=== PATIENT | female | born 1965 | race Two or more races ===

== ENCOUNTER 2019-05-23 16:41 | Inpatient (IN) | payer MEDICARE ==
[~2019-05-23] VITALS: Ht 152.4 cm; Wt 43.1 kg
[2019-05-23] MEDS ORDERED: GABA-534 PO (17:24)
[2019-05-23] MEDS ORDERED: DULO60CA64 PO (17:24)
[2019-05-23] MEDS ORDERED: MIRT15TA7 PO (17:24)
[2019-05-23] MEDS ORDERED: CALC-7 PO (17:24)
[2019-05-23] MEDS ORDERED: LISI10TA5 PO (17:24)
[2019-05-23] MEDS ORDERED: CABE0.5T2 PO (17:24)
[2019-05-23] MEDS ORDERED: ACETAMINOPHEN 325 MG TABLET PO PRN (18:00)
[2019-05-23] MEDS ORDERED: LORAZEPAM 0.5 MG TABLET PO PRN (18:00)
[2019-05-23] MEDS ORDERED: MAG HYDROX/AL HYDROX/SIMETH 30 ML UDC PO PRN (18:00)
[2019-05-23] MEDS ORDERED: BLOOD SUGAR DIAGNOSTIC 1 EACH STRIP IN ONE (18:00)
[2019-05-23] MEDS ORDERED: ZOLPIDEM TARTRATE 5 MG TABLET PO PRN (18:00)
--- NOTE | 2019-05-23 18:47 | NUR ---
PATIENT IS A 53 YEAR OLD FEMALE BROUGHT INTO THE HOSPITAL BY AMBULANCE FROM [facility]. PATIENT IS ADMITTED ON A 5150 HOLD FOR GRAVELY DISABLED. PATIENT FOR THE LAST 2-3 WEEKS HAS BEEN HAVING NEW ONSET AUDITORY HALLUCINATIONS OF MALE VOICE THREATENING HER THAT SHE WILL BE KILLED OR HURT IF SHE EATS OR DRINKS ANYTHING. PATIENT HAS BEEN EATING AND DRINKING VERY LITTLE FOR THE LAST FEW DAYS. UPON FACE TO FACE ASSESSMENT PATIENT IS PARANOID WITH DELAYED SPEECH. PATIENT SEEMS TO BE REACTING TO INTERNAL STIMULI. PATIENT DENIES SI/HI AND VISUAL HALLUCINATIONS. INFORMED DR CORMIER AND JONNY BECKER KNOT PICKER CLOTH OF ADMISSION. PATIENTS RIGHTS HANDBOOK GIVEN AND GUIDE TO PRESCRIPTIONS GIVEN. PATIENT SIGNED ADMISSION PAPERWORK. BROTHER HAS BEEN NOTIFIED OF ADMISSION. ENVIRONMENTAL CHECK COMPLETE. WILL CONTINUE TO MONITOR PT Q15 FOR MOOD, SAFETY AND BEHAVIOR
[2019-05-23 19:36] VITALS: BP 115/62
[2019-05-24 07:36] LABS: BILIRUBIN,TOTAL 0.4 mg/dL (0.2-1.0); CALCIUM, SERUM 8.5 mg/dL (8.5-10.1); CREATININE 0.7 mg/dL (0.6-1.3); POTASSIUM 3.5 mmol/L (3.5-5.1); TOTAL PROTEIN, SERUM 5.6 g/dL (6.4-8.2)
[2019-05-24 08:00] VITALS: BP 118/77
[2019-05-24] MEDS: CALCIUM CARB 250MG /VITAMIN D 1 UDTAB PO SCH ×2 (08:18→18:06)
[2019-05-24] MEDS: LORAZEPAM 0.5 MG TABLET PO PRN (08:19)
[2019-05-24] MEDS: GABAPENTIN 300 MG CAPSULE PO SCH ×3 (08:20→18:06)
[2019-05-24] MEDS: LISINOPRIL (10MG) 10 MG TABLET PO SCH (08:29)
--- NOTE | 2019-05-24 10:33 | NUR ---
Family Contact: SW called the pts brother, Ryan ([phone]), and discussed the pts treatment and discharge plan. Pts brother provided the SW with a complete history and then stated that he is not sure that home alone is a safe option for the pt. SW informed him of the medications that the pt is being started on and then stated that we will assess the pts discharge plan day by day.
--- NOTE | 2019-05-24 10:54 | NUR ---
Initial Discharge Plan: Pt currently resides at her apartment alone located at [address], [address] [address]; ([phone]). Per pt, she would like to return to his home. KENAN spoke to the pts brother, Ryan ([phone]), who stated that he is not sure if that is a safe option at this point. KENAN will work with the pt and the MD regarding appropriate discharge planning. KENAN will form a safe and proper discharge.
[2019-05-24] MEDS: DULOXETINE HCL 30 MG CAPSULE.DR PO SCH (11:23)
[2019-05-24] MEDS ORDERED: Cabergoline 0.5 MG PO SCH (13:00)
--- NOTE | 2019-05-24 15:20 | NUR ---
Group note: Pt attended a group session on 05/24/19 at 2PM discussing suicidal ideation and urges. S: I did not want to admit and get the help but my brother and my mother were very concerned and they just wanted me to be okay. I had made an attempt about 4 years ago but I am not sure if it counts because I jumped out of the way at the last second. I mean, if I really wanted to hurt myself, I would not have jumped out of the way. O: Pt was present during the group session and was cooperative. Pt appeared to be in a euthymic mood and presented with an anxious affect. Pt was attentive and provided feedback to all of the other patients who attended. Pt was able to appropriately maintain eye contact and tone of voice throughout the assessment. A: Pt expressed that she did not think that she actually wanted to end her life since she moved out of the way of a moving car at the last opportunity. Pt expressed thinking that there is something that is pushing her to keep living and even if she cannot identify it, she appreciates its existence. P: Pt will continue milieu treatment and medication stabilization.
[2019-05-24 16:00] VITALS: BP 119/78
--- NOTE | 2019-05-24 18:00 | NUR ---
med compliant,cooperative.
[2019-05-24 20:00] VITALS: BP 132/81
--- NOTE | 2019-05-24 20:00 | NUR ---
PATIENT RESTING IN BED COMFORTABLY, PT.IS COOPERATIVE, FEELING DEPRESSED, DENIES SI/HI/AVH AT THIS TIME. NO AGITATION NOTED.ENCOURAGED FOR VERBALIZATION OF FEELINGS. SAFETY PRECAUTIONS IMPLEMENTED. WILL CONTINUE TO MONITOR Q15MIN ROUNDS FOR SAFETY AND BEHAVIOR.
[2019-05-24] MEDS: QUETIAPINE FUMARATE 25 MG TABLET PO SCH (21:25)
--- NOTE | 2019-05-25 07:21 | NUR ---
RN NOTES : PT. RESETING IN HER BED, NO ACUTE DISTRESS NOTED , DENIED ANY DISCOMFORT AT THIS TIME , IN DURING SHIFT NO BEHAVIOR PROBLEMS NOTED , ENDORSE TO DAY NURSE FOR CONTINUIYT OF CARE.
[2019-05-25 08:00] VITALS: BP 123/80
[2019-05-25] MEDS: LISINOPRIL (10MG) 10 MG TABLET PO SCH (08:36)
[2019-05-25] MEDS: GABAPENTIN 300 MG CAPSULE PO SCH ×3 (08:36→16:36)
[2019-05-25] MEDS: DULOXETINE HCL 30 MG CAPSULE.DR PO SCH (08:36)
[2019-05-25] MEDS: CALCIUM CARB 250MG /VITAMIN D 1 UDTAB PO SCH ×2 (08:36→16:36)
--- NOTE | 2019-05-25 15:03 | NUR ---
GROUP NOTE: SW encouraged pt to attend group on this present day discussing "discharge planning." Pt refused to attend stating, "I'll think about going." SW attempted to provide intervention and discuss pts discharge plan and pt responded, "I already have that figured out no need to worry."
[2019-05-25 16:00] VITALS: BP 102/64
--- NOTE | 2019-05-25 20:00 | NUR ---
GPS/NURSING NOTES: PT. IN HER ROOM AWAKE. NO DISTRESS OR AGITATION NOTED. QUIET AND COOPERATIVE AT THIS TIME. CONFUSED AT TIMES. REALITY ORIENTATION DONE. NO C/O PAIN OR DISCOMFORT. SAFETY ENVIRONMENT OBSERVED AT ALL TIMES. WILL CONTINUE TO MONITOR Q 15 MIN FOR SAFETY AND BEHAVIOR.
[2019-05-25 20:21] VITALS: BP 108/56
[2019-05-25] MEDS: QUETIAPINE FUMARATE 25 MG TABLET PO SCH (21:12)
[2019-05-26 08:00] VITALS: BP 104/65
[2019-05-26] MEDS: CALCIUM CARB 250MG /VITAMIN D 1 UDTAB PO SCH ×2 (08:15→16:34)
[2019-05-26] MEDS: GABAPENTIN 300 MG CAPSULE PO SCH ×3 (08:15→16:34)
[2019-05-26] MEDS: DULOXETINE HCL 30 MG CAPSULE.DR PO SCH (08:15)
[2019-05-26] MEDS: LISINOPRIL (10MG) 10 MG TABLET PO SCH (08:16)
[2019-05-26] MEDS: LORAZEPAM 0.5 MG TABLET PO PRN (08:26)
--- NOTE | 2019-05-26 08:27 | NUR ---
GPS/RN AGITATION NOTED. PT C/O HEARING VOICES. MEDICATED WITH ATIVAN PO 0.5 ORDERED
--- NOTE | 2019-05-26 09:30 | NUR ---
GPS/RN DR CORMIER MADE AWARE OF PT CONDITION.
[2019-05-26] MEDS: QUETIAPINE FUMARATE 25 MG TABLET PO SCH ×3 (09:51→22:00)
[2019-05-26 16:00] VITALS: BP 104/65
--- NOTE | 2019-05-26 19:30 | NUR ---
GPS OPENING NOTE: PATIENT IN BED RESTING COMFORTABLY, IN NO APPARENT DISTRESS NOTED. ALERT AND ORIENTED X3, PATIENT IS CALM AND COOPERATIVE WITH CARE. SAFETY PRECAUTIONS IMPLEMENTED. BED ALARM ON AND IN LOCKED POSITION. WILL CONTINUE TO MONITOR FOR PATIENT'S SAFETY.
[2019-05-26 20:00] VITALS: BP 96/59
--- NOTE | 2019-05-26 22:49 | NUR ---
GPS NURSING NOTE: SCHEDULED SEROQUEL 50MG PO FOR TONIGHT WAS NOT GIVEN/ADMINISTER DUE TO BLOOD PRESSURE 96/59. WILL CONTINUE TO MONITOR.
--- NOTE | 2019-05-27 06:16 | NUR ---
GPS RN CLOSING NOTE: PATIENT IN BED ASLEEP, AROUSES EASILY. NO ACUTE DISTRESS NOTED. DENIES PAIN OR DISCOMFORT. NO AGITATION NOTED. SAFETY PRECAUTIONS IMPLEMENTED. BED ALARM ON AND IN LOCKED POSITION. WILL CONTINUE TO MONITOR FOR PT'S SAFETY.
[2019-05-27 08:00] VITALS: BP 124/74
[2019-05-27] MEDS: CALCIUM CARB 250MG /VITAMIN D 1 UDTAB PO SCH ×2 (08:19→17:17)
[2019-05-27] MEDS: GABAPENTIN 300 MG CAPSULE PO SCH ×3 (08:19→17:17)
[2019-05-27] MEDS: DULOXETINE HCL 30 MG CAPSULE.DR PO SCH (08:19)
[2019-05-27] MEDS: QUETIAPINE FUMARATE 25 MG TABLET PO SCH ×3 (08:19→21:07)
[2019-05-27] MEDS: LISINOPRIL (10MG) 10 MG TABLET PO SCH (08:20)
[2019-05-27 16:02] VITALS: BP 111/72
--- NOTE | 2019-05-27 19:30 | NUR ---
GPS OPENING NOTE: PATIENT IN BED RESTING COMFORTABLY, IN NO APPARENT DISTRESS NOTED. ALERT AND ORIENTED X3, PATIENT IS CALM, COOPERATIVE WITH CARE. FEELING DEPRESSED, ISOLATIVE. VERBALIZATION OF FEELINGS ENCOURAGED. SAFETY PRECAUTIONS IMPLEMENTED. BED ALARM ON AND IN LOCKED POSITION. WILL CONTINUE TO MONITOR FOR PATIENT'S SAFETY.
[2019-05-27 20:02] VITALS: BP 105/68
[2019-05-28 08:00] VITALS: BP 134/88
[2019-05-28] MEDS: GABAPENTIN 300 MG CAPSULE PO SCH ×3 (09:01→17:48)
[2019-05-28] MEDS: DULOXETINE HCL 30 MG CAPSULE.DR PO SCH (09:01)
[2019-05-28] MEDS: QUETIAPINE FUMARATE 25 MG TABLET PO SCH ×4 (09:02→21:18)
[2019-05-28] MEDS: LISINOPRIL (10MG) 10 MG TABLET PO SCH (09:03)
[2019-05-28] MEDS: CALCIUM CARB 250MG /VITAMIN D 1 UDTAB PO SCH ×2 (09:06→17:48)
[2019-05-28 15:29] LABS: BASOPHILS % (AUTO) 0.6 % (0.0-2.0); EOSINOPHILS % (AUTO) 1.5 % (0.0-6.0); HEMATOCRIT 44 % (33-45); HEMOGLOBIN 14.7 g/dL (11.5-14.8); LYMPHOCYTES # (AUTO) 0.9 /CMM (0.8-4.8); LYMPHOCYTES % (AUTO) 12.9 % (20.0-44.0); MEAN CORPUSCULAR HGB CONC 33 g/dl (31.0-36.0); MEAN CORPUSCULAR VOLUME 92 fL (82-100); MONOCYTES # (AUTO) 0.5 /CMM (0.1-1.30); MONOCYTES % (AUTO) 7.6 % (2.0-12.0); NEUTROPHILS # (AUTO) 5.3 /CMM (1.8-8.9); NEUTROPHILS % (AUTO) 77.4 % (43.0-81.0); PLATELET COUNT (AUTO) 244 /CMM (150-450); WHITE BLOOD COUNT (AUTO) 6.9 K/uL (4.3-11.0)
[2019-05-28 16:00] VITALS: BP 118/79
[2019-05-28 16:03] LABS: CREATININE 0.8 mg/dL (0.6-1.3); POTASSIUM 4.2 mmol/L (3.5-5.1)
[2019-05-28 20:09] VITALS: BP 153/83
[2019-05-29 08:00] VITALS: BP 137/77
[2019-05-29] MEDS: QUETIAPINE FUMARATE 25 MG TABLET PO SCH ×5 (08:10→21:21)
[2019-05-29] MEDS: CALCIUM CARB 250MG /VITAMIN D 1 UDTAB PO SCH ×2 (08:10→17:54)
[2019-05-29] MEDS: DULOXETINE HCL 30 MG CAPSULE.DR PO SCH (08:10)
[2019-05-29] MEDS: GABAPENTIN 300 MG CAPSULE PO SCH ×3 (08:10→17:00)
[2019-05-29] MEDS: LORAZEPAM 0.5 MG TABLET PO PRN (08:11)
[2019-05-29] MEDS: LISINOPRIL (10MG) 10 MG TABLET PO SCH (08:59)
--- NOTE | 2019-05-29 09:46 | NUR ---
GPS NURSING NOTE: RECEIVED PT IN BED RESTING. A/OX3, NO APPARENT DISTRESS NOTED. PT.IS COOPERATIVE WITH CARE AND COMPLIANT WITH DAILY MEDS, PATIENT REPORTS AUDITORY HALLUCINATIONS THAT ARE THREATENING. VOICE TELLING HER NOT TO EAT BUT SHE WAS ABLE TO EAT A FULL MEAL FOR BREAKFAST. PATIENT STATED FEELING SUICIDAL DUE TO AUDITORY HALLUCINATIONS BUT DENIES PLAN. VERBALIZATION OF FEELINGS ENCOURAGED. SAFETY PRECAUTIONS IMPLEMENTED. WILL CONTINUE TO MONITOR Q15MIN FOR SAFETY AND BEHAVIOR.
[2019-05-29 16:00] VITALS: BP 82/53
--- NOTE | 2019-05-29 17:54 | NUR ---
gps rn note; hold psych meds per Dr Morales until Dr Morales is able to see pt tomorrow bp currently 92/50
--- NOTE | 2019-05-29 18:29 | NUR ---
DR WILL AWARE OF BP DROPPED 77/50. ORDERED COFFEE. ADMINISTERED. PATIENT BP INCREASED TO 92/50. INCREASED PO INTAKE. AT 1830 BP DROPPED TO 74/56. DR. WILL PAGED AGAIN
[2019-05-29] MEDS ORDERED: IV NS 0.9% 1,000 ML BAG IV STA (18:38)
[2019-05-29] MEDS ORDERED: IV NS 0.9% 1,000 ML IV ONE (19:00)
--- NOTE | 2019-05-29 20:35 | NUR ---
GPS RN NOTE: OPENING NOTES RECEIVED PATIENT ASLEEP IN BED, ARAUSABLE TO VERBAL AND TACTILE STIMULI, ALERT AND ORIENTED X 2-3, CALM, DEPRESSED MOOD, HEARING VOICES AND STATED "THEY LET ME DO THINGS". REALITY ORIENTATION PROVIDED, REDIRECTED THE PATIENT, DENIES SI/HI, ON IV BOLUS D/T LOW BLOOD PRESSURE, IV SITE INTACT AND PATENT WITH NO S/S OF INFILTRATION NOTED. LATEST BP=79/53 P=70 R=20 P/L=O, NO SOB, NO ACUTE DISTRESS, BREATHING EVEN AND UNLABORED, NO S/S OF PAIN AND DISCOMFORT, WILL CONTINUE TO MONITOR Q15 MINS FOR SAFETY
[2019-05-29 20:54] VITALS: BP 74/48
[2019-05-29 21:23] VITALS: BP 86/54
[2019-05-29 23:33] VITALS: BP 90/58
--- NOTE | 2019-05-29 23:33 | NUR ---
GPS RN NOTE: BLOOD PRESSURE PATIENT AWAKE, ALERT AND ORIENTED X 3, CALM, COOPERATIVE, NO AGITATION NOTED, DENIES SI/HI, BP=90/57 P=87 R=20. NO SOB, NO ACUTE DISTRESS, BREATHING EVEN AND UNLABORED, NO S/S OF PAIN AND DISCOMFORT, WILL CONTINUE TO MONITOR Q15 MINS FOR SAFETY
[2019-05-30 08:00] VITALS: BP 126/84
[2019-05-30] MEDS: LISINOPRIL (10MG) 10 MG TABLET PO SCH (09:00)
[2019-05-30] MEDS: CALCIUM CARB 250MG /VITAMIN D 1 UDTAB PO SCH ×2 (09:00→17:46)
[2019-05-30] MEDS: GABAPENTIN 300 MG CAPSULE PO SCH ×3 (09:00→17:46)
[2019-05-30] MEDS: DULOXETINE HCL 30 MG CAPSULE.DR PO SCH (09:00)
[2019-05-30] MEDS: OLANZAPINE 2.5 MG TABLET PO SCH ×2 (10:00→17:46)
--- NOTE | 2019-05-30 15:58 | NUR ---
Group Note: SW encouraged pt to attend group therapy on 05/30/19 at 2pm discussing aggressive behaviors and triggers. Pt refused to attend group and stated that she did not feel connected to this topic. SW asked the pt to simply talk about her triggers and the pt stated that she is unaware of her triggers. She stated that when she talks about traumatic events in her life she will slam her hands down and clench them. She stated that she does not get aggressive with others.
[2019-05-30 16:00] VITALS: BP 120/73
--- NOTE | 2019-05-30 21:14 | NUR ---
GPS RN OPENING NOTE: RECEIVED PATIENT AWAKE, ALERT AND ORIENTED X 2-3 CALM, COOPERATIVE, PACING, DEPRESSED MOOD, DENIES SI/HI , HEARING VOICES OF PEOPLE THREATENING HER, TELLING HER TO HURT HERSELF, STAY IN BED AND RESTRICT HER ACTIVITES. PATIENT CONTRACTED FOR SAFETY. DENIES VH. NO SOB, NO ACUTE DISTRESS, BREATHING EVEN AND UNLABORED, NO S/S OF PAIN AND DISCOMFORT, ENCOURAGE THE PATIENT TO VERBALIZE HER FEELINGS, REDIRECTED THE PATIENT, WILL CONTINUE TO MONITOR Q15 MINS FOR SAFETY
[2019-05-30 23:22] VITALS: BP 113/72
[2019-05-31] MEDS: LORAZEPAM 0.5 MG TABLET PO PRN (01:48)
--- NOTE | 2019-05-31 02:20 | NUR ---
GPS RN NOTE: HEARING VOICES PATIENT NOTED FOR TALKING TO SELF, AGITATED AND BANGING THE SIDE RAILS. SPOKE TO THE PATIENT AND PATIENT STATED THAT SHE IS HEARING VOICES OF THREATENING HER. REDIRECT THE PATIENT, EXPLANATION AND REALITY ORIENTATION PROVIDED. ATIVAN 1MG PO GIVEN AND PATIENT CALM DOWN POST 30 MINS. WILL CONTINUE TO [id number] MINS FOR SAFETY
[2019-05-31 08:00] VITALS: BP 118/77
[2019-05-31] MEDS: GABAPENTIN 300 MG CAPSULE PO SCH ×3 (08:50→16:31)
[2019-05-31] MEDS: OLANZAPINE 2.5 MG TABLET PO SCH (08:50)
[2019-05-31] MEDS: DULOXETINE HCL 30 MG CAPSULE.DR PO SCH (08:51)
[2019-05-31] MEDS: LISINOPRIL (10MG) 10 MG TABLET PO SCH (08:51)
[2019-05-31] MEDS: CALCIUM CARB 250MG /VITAMIN D 1 UDTAB PO SCH ×2 (08:51→16:31)
--- NOTE | 2019-05-31 09:58 | NUR ---
Probable Cause Hearing Notification: SW called the pts brother, Ryan ([phone]), and informed him about the hearing and what it entails and the possible outcomes. He informed the SW about some comments that the pt had made to him two days ago. SW stated that she will call him back and give him the results of the hearing.
--- NOTE | 2019-05-31 13:29 | NUR ---
Group Note: SW invited the patient to attend group therapy on 05/31/2019 1pm to discuss what they would like to see change as a result of their stay in [facility]. The patient refused stating, " I don't want to go, I just want to rest". SW encouraged patient to attend and sit in if they do not feel comfortable speaking. Patient declined and stated "I will try to attend next time".
--- NOTE | 2019-05-31 15:49 | NUR ---
Family Contact: SW called the pts brother, Ryan ([phone]), and left a voicemail stating that the pts hold was upheld.
[2019-05-31 16:00] VITALS: BP 111/74
[2019-05-31] MEDS: ZIPRASIDONE 20 MG CAPSULE PO SCH (16:31)
[2019-05-31 20:27] VITALS: BP 104/65
[2019-06-01] MEDS: LORAZEPAM 0.5 MG TABLET PO PRN ×3 (06:52→21:21)
[2019-06-01 08:00] VITALS: BP 116/83
[2019-06-01] MEDS: GABAPENTIN 300 MG CAPSULE PO SCH ×3 (08:23→17:05)
[2019-06-01] MEDS: CALCIUM CARB 250MG /VITAMIN D 1 UDTAB PO SCH ×2 (08:23→17:05)
[2019-06-01] MEDS: ZIPRASIDONE 20 MG CAPSULE PO SCH ×2 (08:23→17:05)
[2019-06-01] MEDS: VENLAFAXINE XR 75 MG CAP.SR.24H PO SCH (08:23)
[2019-06-01] MEDS: LISINOPRIL (10MG) 10 MG TABLET PO SCH (08:24)
--- NOTE | 2019-06-01 09:20 | NUR ---
GPS RN NURSING NOTE: OPENING NOTE RECEIVED PT IN BED RESTING. A/OX3 PT IS C/O AUDITORY HALLUCINATIONS THAT SHE REPORTS ARE "THREATENING". PATIENT IS CLEARLY REACTING TO INTERNAL STIMULI AND IS SEEN TALKING ABOUT BANGING THE SIDE RAILS OF HER BED WELL TAPPING HER HAND AGAINST HER THIGH. PATIENT IS COOPERATIVE WITH CARE AND COMPLIANT WITH DAILY MEDS, VERBALIZATION OF FEELINGS ENCOURAGED. SAFETY PRECAUTIONS IMPLEMENTED. WILL CONTINUE TO MONITOR Q15MIN FOR SAFETY AND BEHAVIOR.
--- NOTE | 2019-06-01 15:06 | NUR ---
GPS NURSING NOTE: AUDITORY HALLUCINATIONS AND AGITATION PATIENT EXHIBITING AGITATION AND ANXIETY DUE TO AUDITORY HALLUCINATIONS. SHE IS BANGING HER HAND AGAINST THE BED. PATIENT IS EXPERIENCING COMMAND HALLUCINATIONS THAT SHE DESCRIBES "THREATENING". ATIVAN 1MG PO ADMINISTERED FOR SYMPTOMS. SHE STATED THE ATIVAN HELPED HER THIS MORNING WELL. WILL CONTINUE TO MONITOR Q15 FOR MOOD, SAFETY AND BEHAVIOR
[2019-06-01 16:00] VITALS: BP 103/59
[2019-06-01 20:00] VITALS: BP 120/72
[2019-06-02] MEDS: MAGNESIUM HYDROXIDE 30 ML UDC PO PRN (00:45)
[2019-06-02 08:00] VITALS: BP 113/72
[2019-06-02] MEDS: CALCIUM CARB 250MG /VITAMIN D 1 UDTAB PO SCH ×2 (08:17→16:25)
[2019-06-02] MEDS: ZIPRASIDONE 20 MG CAPSULE PO SCH ×2 (08:17→16:22)
[2019-06-02] MEDS: GABAPENTIN 300 MG CAPSULE PO SCH ×3 (08:17→16:25)
[2019-06-02] MEDS: VENLAFAXINE XR 75 MG CAP.SR.24H PO SCH (08:17)
[2019-06-02] MEDS: LISINOPRIL (10MG) 10 MG TABLET PO SCH (09:00)
--- NOTE | 2019-06-02 10:24 | NUR ---
GPS/RN-NOTES DR. CORMIER IN THE EUNIT WITH VERBAL ORDER TO CONTINUE PATIENT ON DOSTINEX 0.5MG P.O Q WEEK DUE TO PATIENT PROLACTIN LEVEL 0F 99.9. NOTED AND CARRIED OUT.WILL LET DENIS ZAMORANO REGARDING THE MEDICATION.
[2019-06-02] MEDS ORDERED: CABERGOLINE 0.5 MG PO SCH (10:30)
[2019-06-02] MEDS: POLYETHYLENE GLYCOL 3350 17 GM POWD.PACK PO SCH ×2 (10:30→21:01)
[2019-06-02] MEDS: BROMOCRIPTINE MESYLATE (2.5MG) 2.5 MG TABLET PO SCH (12:00)
--- NOTE | 2019-06-02 14:45 | NUR ---
RN NOTES PT REFUSING ADMINISTRATION OF NOON TIME PARLODEL. pT STATES THAT THE DRUG HAS BEEN DISCUSSED WITH THEIR ENDOCRINOLOGIEST AND IT WAS RECOMMENDED THAT SHE NOT TAKE THE PARLODEL WITH HER CURRENT TREATMENT. BENEFITS,/REWARDS/ RISKS AND SIDE EFFECTS APPLIED TO EXPLAINED TO PT. pT VERBALIZES UNDERSTANDING OF EDUCATION YET CONTINUES TO INSIST ON MEDICATION REFUSAL. WILL ILL CONTINUE TO MONITOR\.
--- NOTE | 2019-06-02 15:58 | NUR ---
GROUP NOTE: SW encouraged pt to attend group on this present day discussing "suicidal ideation." Pt refused stating she is unable to leave her room because she is in intermediate and prisoners can't leave. Pt is paranoid and appeared fearful. SW will continue to validate her feelings of distress in a nurturing manner once daily.
[2019-06-02 16:00] VITALS: BP 110/70
[2019-06-02 20:16] VITALS: BP 124/82
[2019-06-02] MEDS: LORAZEPAM 0.5 MG TABLET PO PRN (20:40)
--- NOTE | 2019-06-02 20:40 | NUR ---
GPS NURSING NOTE: AUDITORY HALLUCINATIONS AND AGITATION PATIENT HAS AN EPISODES OF ANXIETY AND AGITATION DUE TO AUDITORY HALLUCINATIONS. PATIENT STILL HEARING VOICES TELLING HER "THAT MAN IS GOING TO HURT, THREATENS AND CONTROL HER. PATIENT NOTED INSIDE THE BATHROOM SLAPPING HER THIGH. PATIENT REDIRECTED. ADMINISTERED ATIVAN 1MG PO ORDERED. WILL CONTINUE TO MONITOR Q15 FOR MOOD, SAFETY AND BEHAVIOR
[2019-06-03 08:00] VITALS: BP 119/72
[2019-06-03] MEDS: LISINOPRIL (10MG) 10 MG TABLET PO SCH (09:00)
[2019-06-03] MEDS: VENLAFAXINE XR 75 MG CAP.SR.24H PO SCH (09:05)
[2019-06-03] MEDS: GABAPENTIN 300 MG CAPSULE PO SCH ×3 (09:05→17:13)
[2019-06-03] MEDS: BROMOCRIPTINE MESYLATE (2.5MG) 2.5 MG TABLET PO SCH (09:05)
[2019-06-03] MEDS: ZIPRASIDONE 20 MG CAPSULE PO SCH ×2 (09:05→17:13)
[2019-06-03] MEDS: CALCIUM CARB 250MG /VITAMIN D 1 UDTAB PO SCH ×2 (09:05→17:13)
[2019-06-03] MEDS: MAGNESIUM HYDROXIDE 30 ML UDC PO PRN (11:27)
--- NOTE | 2019-06-03 11:28 | NUR ---
AGITATED.GIVEN ATIVAN 1 MG PO.ADDITIONALLY REQUESTS LAXATIVE.GIVEN MOM.
[2019-06-03] MEDS: LORAZEPAM 1 MG TABLET PO PRN (11:31)
--- NOTE | 2019-06-03 13:07 | NUR ---
DR. CORMIER HERE AND SPOKE TO PT. REGARDING LACK OF MED COMPLIANCE. REFUSED PARLODEL AND ONLY TOOK 40 MG OF GEODON.STATES SHE WILL TAKE PARLODEL NOW.
[2019-06-03 16:00] VITALS: BP 112/63
[2019-06-03 21:05] VITALS: BP 100/63
[2019-06-03] MEDS: POLYETHYLENE GLYCOL 3350 17 GM POWD.PACK PO SCH (22:23)
[2019-06-04 08:00] VITALS: BP 119/75
[2019-06-04] MEDS: LISINOPRIL (10MG) 10 MG TABLET PO SCH (08:24)
[2019-06-04] MEDS: ZIPRASIDONE 20 MG CAPSULE PO SCH (08:24)
[2019-06-04] MEDS: VENLAFAXINE XR 75 MG CAP.SR.24H PO SCH (08:24)
[2019-06-04] MEDS: GABAPENTIN 300 MG CAPSULE PO SCH ×3 (08:24→16:25)
[2019-06-04] MEDS: CALCIUM CARB 250MG /VITAMIN D 1 UDTAB PO SCH ×2 (08:24→16:25)
[2019-06-04] MEDS: BROMOCRIPTINE MESYLATE (2.5MG) 2.5 MG TABLET PO SCH (08:26)
--- NOTE | 2019-06-04 09:21 | NUR ---
PATIENT AWAKE, ALERT AND ORIENTED X 2-3 CALM, HEARING VOICES TELLING HER TO HURT HERSELF, DENIES SI/HI,ISOLATIVE DEPRESSED MOOD PATIENT CONTRACTED FOR SAFETY. DENIES PAIN.NO SOB, NO ACUTE DISTRESS,BREATHING EVEN AND UNLABORED, NO S/S OF PAIN AND DISCOMFORT,WILL CONTINUE TO MONITOR Q15 MINS FOR SAFETY
[2019-06-04] MEDS: LORAZEPAM 1 MG TABLET PO PRN (10:29)
--- NOTE | 2019-06-04 10:29 | NUR ---
GPS RN NOTE: PT HEARING VOICES HITTING ON THE BED, ATIVAN 1MG PO PRN GIVEN WILL CONTINUE MONITORING
[2019-06-04] MEDS: OLANZAPINE 5 MG TABLET PO SCH ×2 (13:00→21:42)
[2019-06-04] MEDS: MAGNESIUM HYDROXIDE 30 ML UDC PO PRN (15:27)
[2019-06-04 16:01] VITALS: BP 94/65
[2019-06-04 20:04] VITALS: BP 90/53
[2019-06-04 21:37] VITALS: BP 98/67
[2019-06-04] MEDS: POLYETHYLENE GLYCOL 3350 17 GM POWD.PACK PO SCH (21:41)
[2019-06-05] MEDS: LORAZEPAM 1 MG TABLET PO PRN ×2 (05:56→18:15)
--- NOTE | 2019-06-05 05:58 | NUR ---
rn gps notes patient noted hitting bed states she hears voices, appears anxious ativan prn offered patient agreed, prn ativan given as ordered, will continue to monitor for effectiveness.
[2019-06-05 08:00] VITALS: BP 107/92
[2019-06-05] MEDS: CALCIUM CARB 250MG /VITAMIN D 1 UDTAB PO SCH ×2 (08:33→17:18)
[2019-06-05] MEDS: VENLAFAXINE XR 75 MG CAP.SR.24H PO SCH (08:33)
[2019-06-05] MEDS: LISINOPRIL (10MG) 10 MG TABLET PO SCH (08:34)
[2019-06-05] MEDS: GABAPENTIN 300 MG CAPSULE PO SCH ×3 (08:34→17:18)
[2019-06-05] MEDS: BROMOCRIPTINE MESYLATE (2.5MG) 2.5 MG TABLET PO SCH (08:35)
[2019-06-05] MEDS: OLANZAPINE 5 MG TABLET PO SCH ×2 (08:37→21:36)
[2019-06-05] MEDS ORDERED: OLANZAPINE 10 MG VIAL IM STA (10:44)
--- NOTE | 2019-06-05 10:45 | NUR ---
RN NOTE:PATIENT TALKING TO HERSELF AND RESPONDING TO INTERNAL STIMULI HITTING HERSELF IN HER LEGS AND ARMS PATIENT STATED "SHE IS TRYING TO HURT ME ,VOICES TELLING ME BAD THINGS ". CALLED WITH NEW ORDER ZYPREXA 5MG IM PATIENT VOLUNTARILY ACCEPT ZYPREXA 5MG IM ,NO PHYSICAL HOLD WILL CONTINUE TO MONITOR FOR SAFTEY Q15 MINUTES .
[2019-06-05 16:00] VITALS: BP 102/67
[2019-06-05] MEDS: MAGNESIUM HYDROXIDE 30 ML UDC PO PRN (17:18)
--- NOTE | 2019-06-05 19:01 | NUR ---
RN NOTE: AT 1815 PATIENT AGITATED ,RESPONDING TO INTERNAL STIMULI ,HITTING HERSELF IN HER ARM AND LEGS MEDICATED WITH ATIVAN 1MG PO AT 1815 .AT 19:04 PATIENT CALM AND QUIET WILL CONTINUE TO MONITOR.
[2019-06-05 20:45] VITALS: BP 105/62
[2019-06-05] MEDS: POLYETHYLENE GLYCOL 3350 17 GM POWD.PACK PO SCH (21:36)
[2019-06-06] MEDS: LORAZEPAM 1 MG TABLET PO PRN ×3 (06:39→22:41)
--- NOTE | 2019-06-06 06:48 | NUR ---
GPS RN NOTE PT WOKE UP DISORGANIZED, ANXIOUS, BANGING ON THE SIDE OF HER BED. ATIVAN 1MG 1TAB GIVEN PO AT 0640. WILL CONTINUE TO MONITOR AND ENDORSE TO AM SHIFT.
[2019-06-06 08:00] VITALS: BP 101/69
[2019-06-06] MEDS: CALCIUM CARB 250MG /VITAMIN D 1 UDTAB PO SCH ×2 (08:11→16:50)
[2019-06-06] MEDS: VENLAFAXINE XR 75 MG CAP.SR.24H PO SCH (08:11)
[2019-06-06] MEDS: GABAPENTIN 300 MG CAPSULE PO SCH ×3 (08:11→16:50)
[2019-06-06] MEDS: OLANZAPINE 5 MG TABLET PO SCH ×3 (08:11→21:48)
[2019-06-06] MEDS: LISINOPRIL (10MG) 10 MG TABLET PO SCH (08:12)
[2019-06-06] MEDS: BROMOCRIPTINE MESYLATE (2.5MG) 2.5 MG TABLET PO SCH (08:14)
--- NOTE | 2019-06-06 09:36 | NUR ---
SNF Referral: SW faxed SNF referrals to the following facilities: [facility] with attn to [place] to the fax number: [phone] [facility] with attn to Malina to the fax number: [phone].
--- NOTE | 2019-06-06 10:25 | NUR ---
SNF Contact: Lynne ([phone]) from [facility] contacted the SW and stated that their facility is at capacity at the moment so there is no bed for the pt.
[2019-06-06] MEDS: MAGNESIUM HYDROXIDE 30 ML UDC PO PRN (10:27)
--- NOTE | 2019-06-06 10:29 | NUR ---
RN NOTE: PT C/O CONSTIPATION. MEDICATED WITH MOM PRN. PT STATES LAST BM 06.05.2019
--- NOTE | 2019-06-06 12:36 | NUR ---
RN NOTE/AGITATION: PT WITH INCREASED AGITATION. +CAH TO HURT SELF. PT HITTING THIGH WITH HAND. MEDICATED WITH ATIVAN 1MG PO PRN
--- NOTE | 2019-06-06 15:45 | NUR ---
Group Note: Pt attended group on 06/06/19 at 2pm discussing the topic of concerns around discharge plan. S: "I was told that I am going to be discharged to a nursing facility but I feel like I am too young for that and I do not know why this is the plan." "I know that my family is concerned for my safety and I am concerned about my health at this moment too but I just do not know where I can go. I want to go home but now my brother wants me to move to [place] to be around him." O: Pt is alert and oriented x4. Pt appeared to be in a depressed mood but presented with a calm affect. Pt was able to maintain appropriate eye contact and tone of voice. A: Pt appeared to be confused regarding her discharge plan due to her age and her lack of insight towards her needs. Pt came to the conclusion at the end of the group that the MD has appropriately conducted this plan of care for her. SW explained the benefits of a mcfp and the pt stated that she understands that she will continue to work on her stabilization. P: SW will continue to assess pts ability to participate in group milieu.
[2019-06-06 16:00] VITALS: BP 110/71
--- NOTE | 2019-06-06 16:25 | NUR ---
SNF Contact: Malina ([phone]) from [facility] contacted the SW and stated that they are requesting additional notes for the pt due to her suicidal ideation.
[2019-06-06 20:07] VITALS: BP 116/78
[2019-06-06] MEDS: POLYETHYLENE GLYCOL 3350 17 GM POWD.PACK PO SCH (21:52)
[2019-06-07] MEDS: LORAZEPAM 1 MG TABLET PO PRN (06:30)
[2019-06-07 08:00] VITALS: BP 125/60
[2019-06-07] MEDS: GABAPENTIN 300 MG CAPSULE PO SCH ×3 (08:21→16:16)
[2019-06-07] MEDS: OLANZAPINE 5 MG TABLET PO SCH ×3 (08:21→21:02)
[2019-06-07] MEDS: LISINOPRIL (10MG) 10 MG TABLET PO SCH (08:22)
[2019-06-07] MEDS: VENLAFAXINE XR 75 MG CAP.SR.24H PO SCH (08:22)
[2019-06-07] MEDS: BROMOCRIPTINE MESYLATE (2.5MG) 2.5 MG TABLET PO SCH (08:22)
[2019-06-07] MEDS: CALCIUM CARB 250MG /VITAMIN D 1 UDTAB PO SCH ×2 (08:22→16:17)
--- NOTE | 2019-06-07 08:53 | NUR ---
SNF Referral: KENAN faxed additional notes to [facility] with attn to Malina to the fax number: [phone].
[2019-06-07] MEDS: MAGNESIUM HYDROXIDE 30 ML UDC PO PRN (12:51)
--- NOTE | 2019-06-07 14:41 | NUR ---
GPS RN NOTE: PT. IN BED,TALKING TO SELF COMPLIANT WITH MEDICATIONS, NO ACUTE DISTRESS OR PAIN, ISOLATIVE AND WITHDRAWN. DENIES SI/HI NO C/O PAIN OR ANY DISCOMFORT PT WILL CONTINUE TO MONITOR FOR SAFETY AND BEHAVIOR.
--- NOTE | 2019-06-07 15:42 | NUR ---
GROUP NOTE: Pt was present in group on this day discussing "discharge plan." S: "I do not want to share with you why I am here and I don't know where I am going." O: Pt is guarded and paranoid with depressed mood and flat affect. A: Pt has not gained awareness during her hospitalization. P: SW will continue to encourage pt to attend group milieu.
[2019-06-07 16:00] VITALS: BP 110/68
[2019-06-07] MEDS: POLYETHYLENE GLYCOL 3350 17 GM POWD.PACK PO SCH (21:03)
[2019-06-08] MEDS: LORAZEPAM 1 MG TABLET PO PRN ×2 (03:51→10:20)
--- NOTE | 2019-06-08 03:53 | NUR ---
GPS RN NOTES: C/O OF FEELING ANXIOUS UPON DOING ROUNDS, PT IS CRYING AND YELLING IN HER ROOM. PT C/O OF FEELING ANXIOUS. OFFERED ATIVAN 1MG PO PRN ORDERED. PT AGREED AND TOLERATED MEDICATION WELL. CONTINUE TO MONITOR.
[2019-06-08 08:00] VITALS: BP 100/69
[2019-06-08] MEDS: VENLAFAXINE XR 75 MG CAP.SR.24H PO SCH (08:23)
[2019-06-08] MEDS: CALCIUM CARB 250MG /VITAMIN D 1 UDTAB PO SCH ×2 (08:23→16:16)
[2019-06-08] MEDS: LISINOPRIL (10MG) 10 MG TABLET PO SCH (08:24)
[2019-06-08] MEDS: GABAPENTIN 300 MG CAPSULE PO SCH ×3 (08:25→16:16)
[2019-06-08] MEDS: OLANZAPINE 5 MG TABLET PO SCH ×3 (08:25→21:01)
[2019-06-08] MEDS: BROMOCRIPTINE MESYLATE (2.5MG) 2.5 MG TABLET PO SCH (08:26)
[2019-06-08] MEDS: MAGNESIUM HYDROXIDE 30 ML UDC PO PRN (08:53)
--- NOTE | 2019-06-08 08:54 | NUR ---
RN NOTE: PT C/O CONSTIPATION. MEDICATED WITH MILK OF MAGNESIA PRN AND PRUNE JUICE GIVEN TO PT.
--- NOTE | 2019-06-08 09:10 | NUR ---
RN NOTE: RECEIVED PT LYING IN BED. NO ACUTE DISTRESS NOTED. VSS, AFEBRILE. PT A+OX3. ABLE TO MAKE NEEDS KNOWN. + COMMAND AUDITORY HALLUCINATIONS TO HURT SELF. PT DENIES SI/HI AT PRESENT TIME. PT C/O CONSTIPATION AND MEDICATED WITH MILK OF MAGNESIA AND GIVEN PRUNE JUICE. BP MEDICATGION HELD DUE TO DECREASED BLOOD PRESSURE. PT COMPLIANT WITH MEDICATION ADMISTRATION AND PLAN OF CARE. WILL CONT TO MONITOR PT PER [facility] PROTOCOL
--- NOTE | 2019-06-08 10:20 | NUR ---
RN NOTE: PT C/O INCREASED ANXIETY AND AUDITORY HALLUCINATIONS. PT MEDICATED WITH ATIVAN 1MG PO PRN.
--- NOTE | 2019-06-08 10:22 | NUR ---
SNF Contact: Malina ([phone]) from [facility] contacted the SW and stated that they will accept the pt. SW informed them that the pt is going to be discharged tomorrow.
--- NOTE | 2019-06-08 10:31 | NUR ---
Family Contact: KENAN called the pts brother, Ryan ([phone]), and left a voicemail stating that placement in a nursing facility was secured and that the pt will be discharged the following day. KENAN stated that she can provide more information with a phone call.
--- NOTE | 2019-06-08 10:40 | NUR ---
Family Contact: Pts brother, Ryan ([phone]), called the SW and stated that he accepts the placement and the SW provided him with the details of the facility.
--- NOTE | 2019-06-08 11:00 | NUR ---
RN NOTE: DR. CORMIER AT BEDSIDE. PLAN OF CARE DISCUSSED WITH PT. POSSIBLE DISCHARGE 06/09/2019 PENDING LAB RESULTS. PT'S LEGAL STATUS CHANGED TO VOLUNTARY. VOLUNTARY FORM SIGNED AND PT VERBALIZE UNDERSTANDING REGARDING PLAN OF CARE AND LEGAL STATUS.
--- NOTE | 2019-06-08 11:19 | NUR ---
RN NOTE: PT REPORTS IMPROVEMENT WITH ANXIETY AND AUDITORY HALLUCINATIONS AFTER ADMINISTRATION OF ATIVAN. WILL CONT TO MONITOR PT'S STATUS
--- NOTE | 2019-06-08 15:15 | NUR ---
Group Note: SW encouraged pt to attend group therapy on 06/08/19 at 2pm discussing social supports. Pt appeared to be asleep in her bed and stated that she did not want to participate in group and that she is being discharged the following morning. SW encouraged her to participate as it is still part of her treatment plan goals and informed her that she could talk about her brother but the pt refused.
[2019-06-08] MEDS ORDERED: POLYETHYLENE GLYCOL 3350 17 GM POWD.PACK PO PRN (16:30)
--- NOTE | 2019-06-08 16:35 | NUR ---
JAVI NOTE: ORDER FOR MIRALAX PRN ORDERED BY DEVAN AL
--- NOTE | 2019-06-08 16:56 | NUR ---
RN NOTE: PT REQUESTING PRN DOSE OF MIRALAX FOR CONSTIPATION. ADMINISTERED PRN DOSE PO
[2019-06-08 18:09] VITALS: BP 109/68
[2019-06-08 20:00] VITALS: BP 129/72
[2019-06-08] MEDS: POLYETHYLENE GLYCOL 3350 17 GM POWD.PACK PO SCH (21:37)
[2019-06-09] MEDS: LORAZEPAM 1 MG TABLET PO PRN (00:31)
--- NOTE | 2019-06-09 00:33 | NUR ---
GPS RN NOTES: C/O OF FEELING ANXIOUS UPON DOING ROUNDS, PT IS CRYING AND YELLING IN HER ROOM. PT TAPPING ON HER BED WITH HER HANDS. PT C/O OF FEELING ANXIOUS. OFFERED ATIVAN 1MG PO PRN ORDERED. PT AGREED AND TOLERATED MEDICATION WELL. CONTINUE TO MONITOR.
[2019-06-09 08:00] VITALS: BP 117/71
[2019-06-09] MEDS: CALCIUM CARB 250MG /VITAMIN D 1 UDTAB PO SCH (08:29)
[2019-06-09] MEDS: GABAPENTIN 300 MG CAPSULE PO SCH (08:29)
[2019-06-09] MEDS: BROMOCRIPTINE MESYLATE (2.5MG) 2.5 MG TABLET PO SCH (08:29)
[2019-06-09] MEDS: VENLAFAXINE XR 75 MG CAP.SR.24H PO SCH (08:29)
[2019-06-09] MEDS: OLANZAPINE 5 MG TABLET PO SCH (08:29)
[2019-06-09 08:30] VITALS: BP 117/71
[2019-06-09] MEDS: LISINOPRIL (10MG) 10 MG TABLET PO SCH (08:30)
--- NOTE | 2019-06-09 09:54 | NUR ---
GPS RN OPENING NOTE: RECEIVED PT LYING IN BED. NO ACUTE DISTRESS NOTED. VSS, PT AOX3. ABLE TO MAKE NEEDS KNOWN. + COMMAND AUDITORY HALLUCINATIONS. PT HITTING SIDE RAILS OF BED DUE TO AUDITORY HALLUCINATIONS. PATIENT FOUND CRYING IN BED THIS MORNING. PT DENIES SI/HI AT PRESENT TIME. BP MEDICATION HELD DUE TO DECREASED BLOOD PRESSURE. PT COMPLIANT WITH MEDICATION ADMINISTRATION AND PLAN OF CARE. DISCHARGE PLANNED FOR TODAY. WILL CONT TO MONITOR PT PER [facility] PROTOCOL
--- NOTE | 2019-06-09 11:44 | NUR ---
GPS BALANCE TRUING INSPECTOR NOTE: PATIENT IS A 53 YEAR OLD FEMALE DISCHARGED TO [facility] ([facility]). PATIENT IS IN STABLE CONDITION. VSS. NO ACUTE DISTRESS NOTED. NO COMPLAINTS. COMPLIANT WITH MEDICATION MANAGEMENT. COOPERATIVE WITH PLAN OF CARE. PSYCHIATRIC TREATMENT PLANS MET. MEDICAL TREATMENT PLANS DEFERRED FOR CONTINUAL MONITORING. DENIES SI/HI AT THE TIME OF DISCHARGE. PRESENT AUDITORY HALLUCINATIONS BUT DENIES VISUAL HALLUCINATIONS. SKIN CHECK DONE AND SKIN IS INTACT. EDUCATED PATIENT ABOUT AFTERCARE WITH COPY PROVIDED. RETURNED PERSONAL BELONGINGS TO PATIENT. MEDICATIONS RECONCILED WITH ALONG WITH PSYCHIATRIC DISCHARGE ORDERS WITH DR CORMIER. MEDICAL MEDICATIONS RECONCILED WITH RIP HARTMAN NP. DISCHARGE PAPERWORK SIGNED. FOR FOLLOW UP WITH PSYCHIATRIST AND FURNACE TENDER WITHIN 1 WEEK. PATIENT LEFT THE [facility] VIA AMBULANCE.
--- NOTE | 2019-06-09 13:44 | NUR ---
Discharge Note: Pt was discharged to [facility] SNF located at [address] [place] [address]; . Pt was transported via [facility] at 11AM. Pts brother, Ryan ([phone]), was made aware. Upon discharge, the pt appeared to be in a euthymic mood and presented with a distressed affect. Pt presented as alert and oriented x4 (time, place, self and situation). Pt denied both suicidal and homicidal ideation as well as auditory and visual hallucinations. Pt will continue to be under the care of psychiatrist, Dr. Morales, located at [address] [address] [facility] [address], [place] [address]; and tool machine set up operator, Dr. Wild, located at [address] [place] [address]; . Pts Choice of Vendor was signed.
== END 2019-06-09 11:40 | DRG 885 ==
LOC: GPS 17:06
PROVIDERS: ADMIT Psychiatry & Neurology Psychiatry; ATTEND Internal Medicine
DX: F33.3 Major depressive disorder, recurrent, severe with psychotic symptoms (principal); E44.0 Moderate protein-calorie malnutrition; R45.851 Suicidal ideations; Z68.1 Body mass index [BMI] 19.9 or less, adult; E22.1 Hyperprolactinemia; F41.9 Anxiety disorder, unspecified; I10 Essential (primary) hypertension; Z91.14 Patient's other noncompliance with medication regimen; Z73.6 Limitation of activities due to disability; R73.9 Hyperglycemia, unspecified; E88.09 Other disorders of plasma-protein metabolism, not elsewhere classified; F29 Unspecified psychosis not due to a substance or known physiological condition
CPT/HCPCS: 36415; 80048-TC; 80053-TC; 80061-TC; 82962-TC; 84146; 84443-TC; 85025-TC; 87081-TC; J3490; J7030

== ENCOUNTER 2019-10-21 14:25 | Inpatient (IN) | payer MEDICARE, OTHER ==
[~2019-10-21] VITALS: Ht 167.6 cm; Wt 57.2 kg
[~2019-10-21 14:25] MED LIST: CABE0.5T2 PO; CALC-7 PO; GABA-534 PO; LISI10TA5 PO
--- NOTE | 2019-10-21 14:25 | NUR ---
PT BIBPA FROM SNF C/O AGGRESSIVE BEHAVIOR TOWARDS STAFF. PT IS AAOX3, NOT IN RESPIRATORY DISTRESS, HOOKED TO INTERNATIONAL RELATIONS PROFESSOR, KEPT RESTED AND COMFORTABLE. WILL CONTINUE TO MONITOR.
--- NOTE | 2019-10-21 14:29 | NUR ---
SEEN AND EXAMINED BY .
--- NOTE | 2019-10-21 14:43 | NUR ---
[facility] CALLED,SPOKE WITH ART RN
--- NOTE | 2019-10-21 14:43 | NUR ---
Sean gill in [facility] - 10/21/[address] [facility] CALLED,SPOKE WITH ART RN
[2019-10-21 14:56] LABS: BASOPHILS % (AUTO) 0.5 % (0.0-2.0); EOSINOPHILS % (AUTO) 1.6 % (0.0-6.0); HEMATOCRIT 44 % (33-45); HEMOGLOBIN 14.8 g/dL (11.5-14.8); LYMPHOCYTES # (AUTO) 1.7 /CMM (0.8-4.8); MEAN CORPUSCULAR HGB CONC 34 g/dl (31.0-36.0); MEAN CORPUSCULAR VOLUME 92 fL (82-100); MONOCYTES # (AUTO) 0.8 /CMM (0.1-1.30); MONOCYTES % (AUTO) 9.7 % (2.0-12.0); NEUTROPHILS # (AUTO) 5.5 /CMM (1.8-8.9); NEUTROPHILS % (AUTO) 67.2 % (43.0-81.0); PLATELET COUNT (AUTO) 260 /CMM (150-450); RED BLOOD CELL COUNT(AUTO) 4.78 MIL/uL (4.0-5.2); WHITE BLOOD COUNT (AUTO) 8.3 K/uL (4.3-11.0)
[2019-10-21 15:03] LABS: CALCIUM, SERUM 8.7 mg/dL (8.5-10.1); CARBON DIOXIDE 27 mmol/L (21-32); CHLORIDE 103 mmol/L (98-107); CREATININE 1.1 mg/dL (0.6-1.3); GLUCOSE 120 mg/dL (74-106); POTASSIUM 3.9 mmol/L (3.5-5.1); SODIUM SERUM 139 mmol/L (136-145); UREA NITROGEN, BLOOD 15 mg/dL (7-18)
--- NOTE | 2019-10-21 15:08 | NUR ---
ER PHLEB AT BEDSIDE FOR BLOOD DRAW.
[2019-10-21 15:09] LABS: ALANINE AMINOTRANSFERASE 32 U/L (12-78); ALBUMIN 3.8 g/dL (3.4-5.0); ALCOHOL, BLOOD < 3 mg/dL (0-0); ALKALINE PHOSPHATASE 94 U/L (46-116); ASPARTATE AMINOTRANSFERASE 15 U/L (15-37); BILIRUBIN,DIRECT 0.1 mg/dL (0.0-0.2); BILIRUBIN,TOTAL 0.3 mg/dL (0.2-1.0); SALICYLATE < 2.8 mg/dL (2.8-20.0); TOTAL PROTEIN, SERUM 7.3 g/dL (6.4-8.2)
--- NOTE | 2019-10-21 15:27 | NUR ---
URINE SPECIMEN COLLECTED AND SEN TO LAB.
[2019-10-21 15:32] LABS: APPEARANCE,URINE Clear (CLEAR); BILIRUBIN,URINE Negative (NEGATIVE); BLOOD, URINE Negative Ery/uL (NEGATIVE); COLOR,URINE Yellow (YELLOW); KETONES,URINE Trace (NEGATIVE); LEUKOCYTE ESTERASE ,URINE Negative (NEGATIVE); NITRITE, URINE Negative (NEGATIVE); PROTEIN,URINE Negative (NEGATIVE); UGLUCOSE Negative (NEGATIVE); UROBILINOGEN,URINE 0.2 EU/dL (0.2)
[2019-10-21 15:35] LABS: BACTERIA,URINE None seen /HPF (None Seen); RBC,URINE 0-2 /HPF (0-2); SQUAMOUS EPITHELIAL CELL,UR Rare /HPF (None Seen)
--- NOTE | 2019-10-21 15:55 | NUR ---
CALLED [facility] FOR CRISIS EVAL. ETA 1 HOUR.
--- NOTE | 2019-10-21 16:35 | NUR ---
DINAH CALDWELL CRISIS RIFLE CASE REPAIRER AT BEDSIDE.
--- NOTE | 2019-10-21 18:15 | NUR ---
COVID SWAB OBTAINED AND SENT TO LAB.
--- NOTE | 2019-10-21 18:18 | NUR ---
REPORT GIVEN TO JAVI DONG FOR RANJEET.
--- NOTE | 2019-10-21 18:34 | NUR ---
RECEIVED PATIENT FROM ER PER JENNIFER ZAMORANO PATIENT WILL BE MEDSURG ONLY AND HE WILL PLACE ADMITTING ORDERS,WILL CONTINUE TO FF.
--- NOTE | 2019-10-21 18:51 | NUR ---
RN NOTE RECEIVED PATIENT FROM ER. PATIENT ADMITTED MS STATUS. IN STABLE CONDITION, ADMITTED DUE TO PENDING COVID SWAB. ON 5150 HOLD. SITTER OBSERVED AT BEDSIDE. PATIENT IS COOPERATIVE. VITAL SIGNS ARE STABLE FOLLOW: BP: 126/78, P: 88, R: 16, O2: 96%, T: 97.6. PATIENT SATURATING WELL ON ROOM AIR, NO SIGNS OF RESPIRATORY DISTRESS NOTED. AMBULATORY, ABLE TO MAKE NEEDS KNOWN. LABS ARE NORMAL. PATIENT HAS NO COMPLAINS AT THE MOMENT. SAFETY MAINTAINED, CALL LIGHT WITHIN REACH, WILL ENDORSED TO PM NURSE FOR ADMISSION.
[2019-10-21] MEDS ORDERED: CABERGOLINE 0.5 MG PO SCH (19:00)
--- NOTE | 2019-10-21 19:30 | NUR ---
RN OPENING NOTES: Received pt in bed, awake A&Ox4. On RA, tolerating well. No SOB or respiratory distress noted. On isolation precautions for R/O Covid. Pt currently on 5150 hold. Pt ambulatory with steady gait. No IV access. Pt cleaned, skin check done, head to toe assessment done. Saad Rodriguez DNP aware of pt's arrival in unit. Will put orders in. Safety measures in place. Will continue to monitor.
[2019-10-21 20:00] VITALS: BP 126/76
[2019-10-21] MEDS ORDERED: MAG HYDROX/AL HYDROX/SIMETH 30 ML UDC PO PRN (20:30)
[2019-10-21] MEDS ORDERED: HYDROCODONE/APAP 5/325MG TABLET PO PRN (20:30)
[2019-10-21] MEDS ORDERED: MAGNESIUM HYDROXIDE 30 ML UDC PO PRN (20:30)
[2019-10-21] MEDS ORDERED: ZOLPIDEM TARTRATE 5 MG TABLET PO PRN (20:30)
[2019-10-21] MEDS ORDERED: ONDANSETRON HCL/PF 4 MG/2 ML VIAL IVP PRN (20:30)
[2019-10-21] MEDS ORDERED: ACETAMINOPHEN 325 MG TABLET PO PRN (20:30)
[2019-10-21] MEDS ORDERED: Z GUARD REMEDY 2 OZ OINT TP PRN (20:30)
--- NOTE | 2019-10-21 21:30 | NUR ---
RN NOTE: Called and left VM for Dr. Morales, per H&P notes.
[2019-10-22 04:00] VITALS: BP 112/69
[2019-10-22 06:26] LABS: BASOPHILS % (AUTO) 0.5 % (0.0-2.0); EOSINOPHILS % (AUTO) 2.3 % (0.0-6.0); HEMATOCRIT 44 % (33-45); HEMOGLOBIN 14.6 g/dL (11.5-14.8); LYMPHOCYTES # (AUTO) 1.4 /CMM (0.8-4.8); LYMPHOCYTES % (AUTO) 19.1 % (20.0-44.0); MEAN CORPUSCULAR HGB CONC 33 g/dl (31.0-36.0); MEAN CORPUSCULAR VOLUME 92 fL (82-100); MONOCYTES # (AUTO) 0.8 /CMM (0.1-1.30); MONOCYTES % (AUTO) 10.9 % (2.0-12.0); NEUTROPHILS % (AUTO) 67.2 % (43.0-81.0); PLATELET COUNT (AUTO) 245 /CMM (150-450); RED BLOOD CELL COUNT(AUTO) 4.79 MIL/uL (4.0-5.2); WHITE BLOOD COUNT (AUTO) 7.4 K/uL (4.3-11.0)
--- NOTE | 2019-10-22 06:44 | NUR ---
RN CLOSING NOTES: Pt remains on isolation precautions for Covid. Remains on RA. No SOB or respiratory distress noted. No acute changes noted during shift. Safety measures in place. Will endorse to AM nurse for RANJEET.
[2019-10-22 06:45] LABS: CALCIUM, SERUM 8.8 mg/dL (8.5-10.1); CREATININE 0.8 mg/dL (0.6-1.3); PHOSPHORUS 4.3 mg/dL (2.5-4.9); POTASSIUM 3.7 mmol/L (3.5-5.1)
[2019-10-22 08:00] VITALS: BP 120/65
--- NOTE | 2019-10-22 08:00 | NUR ---
MS RN NOTE PATIENT IN BED, ALL NEEDS ATTENDED, ON RA ,NO SOB NOTED ,SAT 97%, HAVING BREAKFAST , ABLE TO EAT SELF, BED IN LOWEST AND LOCKED POSITION , OH HOLD FOR 72 HOUR ORDERED, SITTER AT BEDSIDE,RESTING COMFORTABLY AT THIS TIME ,NO AGITATION NOTED
[2019-10-22] MEDS: CALCIUM CARB 250MG /VITAMIN D 1 UDTAB PO SCH ×2 (08:16→16:55)
[2019-10-22] MEDS: GABAPENTIN 300 MG CAPSULE PO SCH ×3 (08:17→16:55)
[2019-10-22] MEDS: LISINOPRIL (10MG) 10 MG TABLET PO SCH (08:17)
--- NOTE | 2019-10-22 11:00 | NUR ---
ms rn note restring comfortably, all needs attended,no sob noted not in distress, still on hold 72 hour per hospital protocol ,with sitter at bedside
[2019-10-22] MEDS: VENLAFAXINE XR 150 MG CAP.SR.24H PO SCH (14:37)
--- NOTE | 2019-10-22 15:57 | NUR ---
telecommunications field engineer note called to dr alamo notified that patient become very agitated and yelling out and become abusive self as clapping her body with new order Zyprexa and Ativan given, will f\u
[2019-10-22 16:00] VITALS: BP 119/67
[2019-10-22] MEDS ORDERED: LORAZEPAM INJ 2 MG/ML VIAL IV ONE (16:00)
[2019-10-22] MEDS ORDERED: OLANZAPINE 10 MG VIAL IM ONE (16:15)
[2019-10-22] MEDS ORDERED: LORAZEPAM INJ 2 MG/ML VIAL IM ONE ×2 (16:30)
--- NOTE | 2019-10-22 17:02 | NUR ---
ms rn note Zyprexa and Ativan given as ordered now resting comfortably, all needs attended
--- NOTE | 2019-10-22 19:54 | NUR ---
RN OPENING PT RECEIVED IN BED. PT IS A/A/O X3, NO DISTRESS NOTED, PT IS ON RA NO SOB NOTED, PT IS ON 5150 HOLD, PT HAS SITTER , PT IS CALM AND COOPERATIVE. NO IV ACCESS. SAFETY MEASURES IN PLACE BED AT LOWEST POSITIO AND LOCKED, SIDE RAILS UP X2. WILL CONTINUE TO MONITOR.
--- NOTE | 2019-10-22 19:55 | NUR ---
RN OPENING NOTE CONTINUE PT DENIES SI AT THIS MOMENT
[2019-10-22 20:00] VITALS: BP 96/56
[2019-10-22] MEDS: OLANZAPINE 10 MG TABLET PO SCH (21:00)
--- NOTE | 2019-10-22 22:13 | NUR ---
RN NOTE ZYPREXA NON ADMIN DUE TO LOW BP 96/56, AND PT IS SLEEPING.
[2019-10-23 04:00] VITALS: BP 102/59
--- NOTE | 2019-10-23 07:02 | NUR ---
RN CLOSING NOTE PT REMAINED CALM AND COOPERATIVE DURING MY SHIFT. VSS, NO SOB NOTED. WILL ENDORSE TO INCOMING SHIFT FOR RANJEET. SDFETY MEASURES IN PLACE.
--- NOTE | 2019-10-23 08:00 | NUR ---
RN opening note Received patient in bed AO x 2-3, able to responds all stimuli. Does no appears pain or any discomfort. Skin is warm to touch, kept clean/dry. Respiratory even and unlabored in room air, no distress observed. Keep bed in locked with low elevated HOB and low position of the bed. Call light within reach, will continue to monitor.
[2019-10-23] MEDS: VENLAFAXINE XR 150 MG CAP.SR.24H PO SCH (08:46)
[2019-10-23] MEDS: CALCIUM CARB 250MG /VITAMIN D 1 UDTAB PO SCH ×2 (08:46→16:04)
[2019-10-23] MEDS: GABAPENTIN 300 MG CAPSULE PO SCH ×3 (08:46→16:04)
[2019-10-23] MEDS: OLANZAPINE 10 MG TABLET PO SCH ×2 (08:46→20:38)
[2019-10-23] MEDS: LISINOPRIL (10MG) 10 MG TABLET PO SCH (08:47)
[2019-10-23 10:00] VITALS: BP 110/58
[2019-10-23] MEDS: BROMOCRIPTINE MESYLATE (2.5MG) 2.5 MG TABLET PO SCH (13:48)
--- NOTE | 2019-10-23 13:49 | NUR ---
Given report Niya/JAVI.
--- NOTE | 2019-10-23 13:50 | NUR ---
received report from Linnea CALDWELL. patient in bed AO x 2-3, able to responds all stimuli. no s/s of distress. Skin is warm to touch, kept clean/dry. Respiratory even and unlabored in room air. Bed in locked with low elevated HOB and low position of the bed. Call light within reach. will continue to monitor
--- NOTE | 2019-10-23 14:30 | NUR ---
BIOCRIPTINE MESYLATE(2.5MG) MISSED DOSE, MED IN NOT IN OMNICELLS OR CASSETTE. INFORMED PHARMACY.
--- NOTE | 2019-10-23 19:00 | NUR ---
RN CLOSING NOTES: Pt remains on isolation precautions for Covid. Remains on RA. No SOB or respiratory distress noted. No acute changes noted during shift. Safety measures in place. Will endorse to pm nurse for RANJEET.
--- NOTE | 2019-10-23 19:10 | NUR ---
RN OPENING NOTES RECEIVED PT LYING ON BED AWAKE NO SIGN AND SYMPTOMS OF RESPIRATORY DISTRESS ON RA SPO2 95 % NO COMPLAINTS OF PAIN AT THIS TIME, PATIENT IS COMPLAINT WITH MEDICATION AND TREATMENT, ALERT AND VERY COOPERATIVE, PATIENT DENIES ANY SUICIDE IDEATION AND HOMICIDAL IDEATION AT THIS TIME, SAFETY MEASURE MAINTAINED CALL LIGHT WITHIN REACH SIDE RFAILS UP X2 PT IS VISIBLE TO SITTER, ON DROPLET ISOLATION FOR R/O COVID WILL CONT TO MONITOR
[2019-10-23 21:00] VITALS: BP 102/61
--- NOTE | 2019-10-24 00:20 | NUR ---
RN NOTE RECEIVED PATIENT AROUND THIS TIME IN BED, SLEEPING COMFORTABLY. ON ISOLATION FOR R/O COVID. SITTER NEXT TO PATIENT'S ROOM. WILL CONTINUE TO MONITOR.
[2019-10-24 05:00] VITALS: BP 125/74
--- NOTE | 2019-10-24 06:48 | NUR ---
RN NOTE PATIENT REMAINED STABLE THROUGHOUT THE NIGHT. NO SIGNIFICANT CHANGES NOTED. ALL NEEDS ATTENDED AND MET. WILL ENDORSE TO AM SHIFT RN FOR CONTINUATION OF CARE.
--- NOTE | 2019-10-24 07:29 | NUR ---
RN OPENING NOTES RECEIVED PT IN BED AWAKE NO SIGN AND SYMPTOMS OF RESPIRATORY DISTRESS ON RA NO SOB NO COOPERATIVE, SAFETY MEASURE MAINTAINED, CALL LIGHT WITHIN REACH SIDE RAILS UP X2 PT IS VISIBLE TO SITTER, ON DROPLET ISOLATION FOR R/O COVID ,WILL CONT TO MONITOR, HAVING BREAKFAST SELF
[2019-10-24 08:00] VITALS: BP 120/75
[2019-10-24] MEDS: OLANZAPINE 10 MG TABLET PO SCH ×2 (08:14→20:54)
[2019-10-24] MEDS: VENLAFAXINE XR 150 MG CAP.SR.24H PO SCH (08:14)
[2019-10-24] MEDS: CALCIUM CARB 250MG /VITAMIN D 1 UDTAB PO SCH ×2 (08:14→16:28)
[2019-10-24] MEDS: GABAPENTIN 300 MG CAPSULE PO SCH ×3 (08:14→16:28)
[2019-10-24] MEDS: LISINOPRIL (10MG) 10 MG TABLET PO SCH (08:15)
--- NOTE | 2019-10-24 09:15 | NUR ---
MS RN NOTE DR HILLIARD PSYCHIATRIST NOTIFIED THAT HOLD ORDER WILL TODAY AT 1730 ,STATED THAT WILL CONT HOLD ORDER FOR 14 DAYS, WILL F\U [facility] NOTIFIED
--- NOTE | 2019-10-24 12:46 | NUR ---
patient covid negative on hold nursig sup notified.awaits bed to clean unit.
--- NOTE | 2019-10-24 13:04 | NUR ---
MS RN NOTE SPOKE WITH DR GOLDSMITH NOTIFIED THAT PATIENT IS NEGATIVE FOR COVID -19 ,OK TO TRANSFER TO [facility] SO
--- NOTE | 2019-10-24 13:17 | NUR ---
MS RN NOTE CALLED TO [facility] UNIT SPIKE WITH CHARGE NURSE, REPORT GIVEN
--- NOTE | 2019-10-24 13:25 | NUR ---
spoke with dr. frannie sanders per patient not clear yet today for discharge to [facility].NURSING SUP MADE AWARE.
[2019-10-24 16:00] VITALS: BP 127/76
--- NOTE | 2019-10-24 17:30 | NUR ---
ms rn note report given to august rn ,patient will be transfer to room 206
[2019-10-24 18:00] VITALS: BP 113/67
--- NOTE | 2019-10-24 18:00 | NUR ---
ms rn note transferred to med surge unit with stable condition by bed
--- NOTE | 2019-10-24 18:15 | NUR ---
RN NOTES RECEIVED PT FROM [facility] WITH A [facility] STATUS VIA WHEELCHAIR WITH A SITTER. PT AWAKE, A/O X3. PT TOLERATING RA WITH NO ACUTE RESPIRATORY DISTRESS NOTED. PT DENIES ANY PAIN OR DISCOMFORT AT THIS TIME. NO PIV NOTED. VITALS CHECKED AND RECORDED. PT KEPT COMFORTABLE. CALL LIGHT KEPT WITHIN REACH. PT'S BED IN LOWEST, LOCKED POSITION WITH SR X3. WILL ENDORSE TO INCOMING NIGHT NURSE FOR RANJEET.
--- NOTE | 2019-10-24 19:10 | NUR ---
MS/RN OPENING NOTES RECEIVED PT WITH A [facility] STATUS. PT AWAKE, A/O X3. SITTER AT BEDSIDE. PT TOLERATING RA WITH NO ACUTE RESPIRATORY DISTRESS NOTED. PT DENIES ANY PAIN OR DISCOMFORT AT THIS TIME. NO PIV NOTED. VITALS WNL AND STABLE. PT KEPT COMFORTABLE. PER DAY SHIFT NURSE, PT IS SUPPOSED TO BE IN [facility] BUT THEY DIDN'T HAVE AN AVAILABLE BED. WILL FOLLOW UP. CALL LIGHT KEPT WITHIN REACH. PT'S BED IN LOWEST, LOCKED POSITION WITH SR X3. WILL CONTINUE TO MONITOR ACCORDINGLY.
[2019-10-24 20:00] VITALS: BP 111/71
[2019-10-24] MEDS: BROMOCRIPTINE MESYLATE (2.5MG) 2.5 MG TABLET PO SCH (21:03)
[2019-10-24 21:19] VITALS: BP 111/71
--- NOTE | 2019-10-24 21:30 | NUR ---
MS/RN NOTES: PT IS AGITATED. STATED THAT SHE IS HEARING VOICES THAT "SHE IS BEING RAPED". ORIENTED PT BACK TO REALITY AND THAT SHE IS IN THE HOSPITAL, SAFE. PER NURSING ASSESSMENT, WHEN PT IS ASKED IF SHE HAS THOUGHTS OF HARMING HERSELF, SHE STATED "THE VOICES ARE TELLING ME TO." SHE ADDED THAT SHE HAS NO VISUAL HALLUCINATIONS AND THAT SHE HAS NO THOUGHTS OF HARMING OTHERS. WILL CONTINUE TO MONITOR PT. ACCORDINGLY.
--- NOTE | 2019-10-24 22:20 | NUR ---
MS/RN NOTES: PT IS MED COMPLIANT AND TOOK SCHEDULED MEDS (ZYPREXA 10MG PO AND PARLODEL 2.5MG) TOLERATED WELL. WILL CONTINUE TO MONITOR. PT IS IN A CALM MANNER AT THIS TIME.
--- NOTE | 2019-10-25 04:40 | NUR ---
MS/SIMULATION SOFTWARE ENGINEER NOTES: PT DISCHARGE TEACHING GIVEN. PT IS MEDICALLY CLEARED AND WILL BE DISCHARGED TO [facility] IN ROOM 214-A. PT IS STABLE. VS WNL AND STABLE. A/O X3. PT TOLERATING RA WITH NO ACUTE RESPIRATORY DISTRESS NOTED. PT DENIES ANY PAIN OR DISCOMFORT AT THIS TIME. NO PIV NOTED. ALL NEEDS MET AND RENDERED. BELONGINGS LIST CHECKED AND SIGNED. EXIT CARE EXPLAINED ANS SIGNED. REPORT WILL BE GIVEN AT BEDSIDE IN [facility] TO RN FIDENCIO. PT LEFT UNIT AT 0440 VIA WHEELCHAIR.
== END 2019-10-25 04:42 | DRG 645 ==
LOC: ER 14:28 → TELE1 18:16 → MEDSG1 18:33 → MEDSG2 10-24 17:48
PROVIDERS: ADMIT Nurse Practitioner Acute Care; ATTEND Hospitalist
DX: E22.1 Hyperprolactinemia (principal); F25.0 Schizoaffective disorder, bipolar type; F29 Unspecified psychosis not due to a substance or known physiological condition; F41.9 Anxiety disorder, unspecified; F32.9 Major depressive disorder, single episode, unspecified; I10 Essential (primary) hypertension; Z73.6 Limitation of activities due to disability; E88.09 Other disorders of plasma-protein metabolism, not elsewhere classified
CPT/HCPCS: 36415; 80048-TC; 80061-TC; 80076-TC; 80305; 81000-TC; 83735-TC; 84100-TC; 84146; 85025-TC; 87081-TC; G0378; G0480; J2060; J3490; U0003-CS

== ENCOUNTER 2019-10-25 04:55 | Inpatient (IN) | payer MEDICARE, OTHER ==
[~2019-10-25] VITALS: Ht 152.4 cm; Wt 57.2 kg
[2019-10-25 04:30] VITALS: BP 129/85
[2019-10-25] MEDS ORDERED: BLOOD SUGAR DIAGNOSTIC 1 EACH STRIP IN ONE (05:00)
[2019-10-25] MEDS ORDERED: ACETAMINOPHEN 325 MG TABLET PO PRN (05:00)
[2019-10-25] MEDS ORDERED: MAG HYDROX/AL HYDROX/SIMETH 30 ML UDC PO PRN (05:00)
[2019-10-25] MEDS ORDERED: MAGNESIUM HYDROXIDE 30 ML UDC PO PRN (05:00)
[2019-10-25 05:32] VITALS: BP 129/85
--- NOTE | 2019-10-25 05:58 | NUR ---
[facility] ADMISSION NOTE: RECEIVED PATIENT FROM [facility], INITIALLY FROM [facility]. PATIENT ON A 5250 HOLD ^11/07/2019. PER HOLD PATIENT IS PARANOID WITH AUDITORY HALLUCINATION AND HAVE NO PLANS OF CARING FOR SELF. PT WAS ORIGINALLY PLACED ON [address] [facility] CALLED [facility] ER REQUESTING FOR PSYCHIATRIC EVALUATION OF PT D/T INCREASED AGITATION, CONFUSION ANS STRIKING OUT BEHAVIOR. UPON FACE TO FACE ASSESSMENT, PT IS A/O X3, PARANOID, LABILE, REDIRECTABLE, FLAT AFFECT. DENIES SI, HI, AT THIS TIME. NO S/S OF ACUTE DISTRESS. NO SOB NOTED. PATIENT'S BREATHING IS EVEN AND UNLABORED WITH EQUAL RISE AND FALL OF THE CHEST. ON ROOM AIR WITH SPO2 OF 98%. PT IS AMBULATORY, ALL PATIENT NEEDS MET. SKIN ASSESSMENT DONE AND PICTURES TAKEN AND PLACED IN CHART. ACCU-CHEK DONE, PT BLOOD SUGAR IS 101MG/DL. PATIENT SIGNED ALL ADMISSION PAPERWORK. PATIENT ADVISED OF HER HOLD AND PT RIGHTS BOOKLET GIVEN. PATIENT IS UNDER THE PSYCHIATRIC CARE OF DR. CORMIER AND MEDICAL CARE OF [facility]. PATIENT BELONGINGS WERE INVENTORIED AND CHECKED FOR CONTRABAND. CONTRABAND TAKEN AND SENT TO SUPERVISORS OFFICE. PATIENT ADVANCED DIRECTIVE PREFERENCE, AND OTHER NECESSARY PAPERWORK COMPLETED. PATIENT ORIENTED TO ROOM, FLOOR/UNIT AND STAFF. PT COMFORTABLE AND CURRENTLY LAYING ON BED. SAFETY MEASURES INITIATED. CARE PLAN STARTED. PATIENT BED IN LOW LOCKED POSITION WITH BED ALARM ON AND SIDE RAILS UP X2. CALL LIGHT WITHIN REACH OF THE PATIENT. WILL CONTINUE TO MONITOR AND REASSESS FOR ANY CHANGES [id number]. WILL ATTEND TO ALL MD ADMITTING ORDERS AND ENDORSE TO AM NURSE.
[2019-10-25 07:49] LABS: CREATININE 0.6 mg/dL (0.6-1.3)
[2019-10-25 08:00] VITALS: BP 139/81
[2019-10-25] MEDS: LISINOPRIL (10MG) 10 MG TABLET PO SCH (09:41)
[2019-10-25] MEDS: VENLAFAXINE XR 150 MG CAP.SR.24H PO SCH (11:42)
[2019-10-25] MEDS: ZIPRASIDONE 20 MG CAPSULE PO SCH (11:42)
[2019-10-25] MEDS: GABAPENTIN 300 MG CAPSULE PO SCH ×2 (12:43→18:35)
--- NOTE | 2019-10-25 13:46 | NUR ---
FACILITY CONTACT: SW contacted [facility] Address: [address] [place] [address] and spoke with Dara, director of graduate admissions who states pt is able to return once stable for discharge.
--- NOTE | 2019-10-25 14:21 | NUR ---
RN-CO: Notified Dr Ford to do his dictation/consultation within 24 hours.
--- NOTE | 2019-10-25 14:22 | NUR ---
FAMILY CONTACT: KENAN spoke with pts brother Ryan [phone] to inform him of pts readmission to the psych unit. Brother stated that he is aware and states that he is pts primary contact. KENAN informed him of pts treatment and discharge plan back to [facility] Address: [address] [place] [address] and brother agreed with discharge plan.
--- NOTE | 2019-10-25 15:10 | NUR ---
RN-CO: Patient was seen by Dr Jesus Ford.
--- NOTE | 2019-10-25 15:23 | NUR ---
INITIAL DISCHARGE PLAN: Pt will return to [facility] Address: [address], [place] [address] . KENAN spoke with Dara, family services coordinator who states pt is able to return once stable for discharge. KENAN will help form a safe and proper discharge in collaboration with .
[2019-10-25 16:00] VITALS: BP 149/94
--- NOTE | 2019-10-25 19:18 | NUR ---
COOPERATIVE,COMPLIANT,NO BEHAVIOR ISSUES.
[2019-10-25 19:57] VITALS: BP 123/82
[2019-10-25] MEDS: LORAZEPAM 0.5 MG TABLET PO PRN (20:42)
[2019-10-25] MEDS: OLANZAPINE 10 MG TABLET PO SCH (21:59)
[2019-10-25] MEDS: TEMAZEPAM 7.5 MG CAPSULE PO PRN (22:36)
[2019-10-26 07:48] LABS: CHOLESTEROL 206 mg/dL (<200); HDL CHOLESTEROL 39 mg/dL (40-60); LDL 148 mg/dL (0-99); TRIGLYCERIDES 136 mg/dL (30-150)
[2019-10-26 08:00] VITALS: BP 117/73
--- NOTE | 2019-10-26 08:15 | NUR ---
OPENING NOTES RECEIVED PATIENT LAYING ON BED, AWAKE, ALERT AND ORIENTED X 2-3. APPEARS DEPRESSED, FLAT AFFECT, ANXIOUS, RESTLESS, RESPONDING TO INTERNAL STIMULI, LOOSE ASSOCIATIONS, DISHEVELED, COOPERATIVE, ABLE TO MAKE NEEDS KNOWN. NO SIGNS OF DISTRESS AT THIS TIME. NO RESPIRATORY DISTRESS AT THIS TIME WITH EVEN NON-LABORED BREATHING, ON ROOM AIR. DENIES SI AT THIS TIME. SAFETY AND FALL PRECAUTION IMPLEMENTED, Q15 MINUTES OBSERVATION CONTINUED. WILL CONTINUE TO MONITOR PATIENT FOR PAIN, MOOD, SAFETY AND BEHAVIOR.
[2019-10-26] MEDS: ZIPRASIDONE 20 MG CAPSULE PO SCH (08:55)
[2019-10-26] MEDS: GABAPENTIN 300 MG CAPSULE PO SCH ×3 (08:55→17:19)
[2019-10-26] MEDS: VENLAFAXINE XR 150 MG CAP.SR.24H PO SCH (08:55)
[2019-10-26] MEDS: LISINOPRIL (10MG) 10 MG TABLET PO SCH (09:01)
--- NOTE | 2019-10-26 15:46 | NUR ---
INDIVIDUAL INTERVENTION: Pt was asleep and not easily aroused by verbal cues.
[2019-10-26 16:00] VITALS: BP 100/69
[2019-10-26 20:09] VITALS: BP 120/77
[2019-10-26] MEDS: OLANZAPINE 10 MG TABLET PO SCH (21:27)
[2019-10-26] MEDS: LORAZEPAM 0.5 MG TABLET PO PRN (22:16)
--- NOTE | 2019-10-26 22:33 | NUR ---
NURSES NOTES: PATIENT NOTED TO BE TALKING CONTINUOUSLY, RAMBLING TO HERSELF "YOU'RE A PIECE OF RESTORATION SHIT, SACRIFICE, I'M RAPING YOU , I'M PUNISHING YOU!" THESE PHRASES OVER AND OVER AGAIN. WHEN ASSESSED, PATIENT TOLD DELICATESSEN CLERK THAT SHE IS HEARING VOICES AND THAT THESE VOICES ARE TELLING HER THAT THEY WILL HURT HER. DELICATESSEN CLERK THEN GAVE THE PATIENT HER PRN DOSE OF ATIVAN ORDERED. WILL MONITOR PATIENT.
[2019-10-26] MEDS: TEMAZEPAM 7.5 MG CAPSULE PO PRN (23:18)
[2019-10-27 08:00] VITALS: BP 114/77
[2019-10-27] MEDS: GABAPENTIN 300 MG CAPSULE PO SCH ×3 (08:22→17:30)
[2019-10-27] MEDS: VENLAFAXINE XR 150 MG CAP.SR.24H PO SCH (08:22)
[2019-10-27] MEDS: ZIPRASIDONE 20 MG CAPSULE PO SCH (08:22)
[2019-10-27] MEDS: LISINOPRIL (10MG) 10 MG TABLET PO SCH (08:23)
--- NOTE | 2019-10-27 14:51 | NUR ---
INDIVIDUAL INTERVENTION: SW met with pt at bedside, pt was talking to self and when she saw SW she stated, "oh hi, come on in how can I help you." SW then asked pt how she was doing and pt stated, "Im hearing voices and they are telling me not to talk to you right now." Pt then closed her eyes and did not engage in conversation fallon SOLORZANO. Pt remains isolative and withdrawn.
[2019-10-27 16:00] VITALS: BP 103/62
[2019-10-27 20:01] VITALS: BP 108/74
[2019-10-27 20:09] VITALS: BP 108/74
[2019-10-27] MEDS: OLANZAPINE 10 MG TABLET PO SCH (21:37)
[2019-10-27] MEDS: LORAZEPAM 0.5 MG TABLET PO PRN (23:03)
--- NOTE | 2019-10-27 23:03 | NUR ---
[facility]PS RN NOTE: ANXIETY PATIENT NOTED TO BE HYPERVERBAL, ANXIOUS, RESTLESS CONTINUOUSLY, RAMBLING/TALKING TO HERSELF "YOU'RE A PIECE OF RASTAFARI SHIT, SACRIFICE, I'M RAPING YOU , I'M PUNISHING YOU. I HATE YOU MORE THAN ANYONE ELSE." PT. KEEP REPEATING THESE PHRASES OVER AND OVER AGAIN. WHEN ASSESSED, PATIENT TOLD RN THAT SHE IS HEARING VOICES AND THAT THESE VOICES ARE TELLING HER THAT THEY WILL HURT HER. PRN DOSE OF ATIVAN 0.5 MG GIVEN ORDERED. WILL CONTINUE TO MONITOR THE PATIENT.
[2019-10-28 08:00] VITALS: BP 123/67
[2019-10-28] MEDS: ZIPRASIDONE 20 MG CAPSULE PO SCH (08:48)
[2019-10-28] MEDS: VENLAFAXINE XR 150 MG CAP.SR.24H PO SCH (08:48)
[2019-10-28] MEDS: LISINOPRIL (10MG) 10 MG TABLET PO SCH (08:48)
[2019-10-28] MEDS: GABAPENTIN 300 MG CAPSULE PO SCH ×3 (08:48→16:10)
[2019-10-28 16:00] VITALS: BP 93/55
[2019-10-28 20:00] VITALS: BP 114/66
[2019-10-28] MEDS: OLANZAPINE 10 MG TABLET PO SCH (21:31)
[2019-10-28 21:59] VITALS: BP 114/66
[2019-10-29] MEDS: LISINOPRIL (10MG) 10 MG TABLET PO SCH (07:59)
[2019-10-29] MEDS: GABAPENTIN 300 MG CAPSULE PO SCH ×3 (07:59→17:36)
[2019-10-29] MEDS: ZIPRASIDONE 20 MG CAPSULE PO SCH (07:59)
[2019-10-29 08:00] VITALS: BP 111/69
[2019-10-29] MEDS: VENLAFAXINE XR 75 MG CAP.SR.24H PO SCH (08:00)
[2019-10-29 16:00] VITALS: BP 111/60
[2019-10-29 20:10] VITALS: BP 111/64
[2019-10-29 20:21] VITALS: BP 111/64
[2019-10-29] MEDS: OLANZAPINE 10 MG TABLET PO SCH (21:07)
[2019-10-30 08:00] VITALS: BP 133/70
[2019-10-30] MEDS: ZIPRASIDONE 20 MG CAPSULE PO SCH (08:03)
[2019-10-30] MEDS: LISINOPRIL (10MG) 10 MG TABLET PO SCH (08:04)
[2019-10-30] MEDS: GABAPENTIN 300 MG CAPSULE PO SCH ×3 (08:04→17:05)
[2019-10-30] MEDS: VENLAFAXINE XR 75 MG CAP.SR.24H PO SCH (08:04)
--- NOTE | 2019-10-30 09:00 | NUR ---
RN NOTE- PT IN ROOM QUIET WITHDRAWN ISOLATIVE POOR EYE CONTACT SEEMS GUARDED AND PARANOID THOUGH IS MED COMPLIANT. RESPONDS WITH VERY SHORT REPLIES TO QUERY DENIES ALL
--- NOTE | 2019-10-30 15:08 | NUR ---
INDIVIDUAL INTERVENTION: SW met with pt at bedside to inviter her to group therapy. Pt was on the phone and stated she was talking to her mom.
[2019-10-30 16:00] VITALS: BP 126/77
[2019-10-30 20:00] VITALS: BP 106/61
[2019-10-30] MEDS: LORAZEPAM 0.5 MG TABLET PO PRN (20:07)
--- NOTE | 2019-10-30 20:09 | NUR ---
GPS RN NOTE: ANXIETY/AGITATION PATIENT IS AGITATED, YELLING, SCREAMING, ANXIOUS, PARANOID, RESTLESS, HYPERVERBAL AT THIS TIME, PRN ATIVAN 0.5 MG 1 TAB PO GIVEN, WILL CONTINUE TO MONITOR .
[2019-10-30] MEDS: OLANZAPINE 10 MG TABLET PO SCH (21:25)
[2019-10-31 08:00] VITALS: BP 123/74
[2019-10-31] MEDS: VENLAFAXINE XR 75 MG CAP.SR.24H PO SCH (08:10)
[2019-10-31] MEDS: LISINOPRIL (10MG) 10 MG TABLET PO SCH (08:11)
[2019-10-31] MEDS: ZIPRASIDONE 20 MG CAPSULE PO SCH (08:11)
[2019-10-31] MEDS: GABAPENTIN 300 MG CAPSULE PO SCH ×3 (08:11→16:26)
--- NOTE | 2019-10-31 09:00 | NUR ---
RN NOTE- QUIET ALERT ORIENTED TO PERSON PLACE SEEMS GUARDED AND PARANOID THOUGH IS MED COMPLIANT. DOES NOT ENGAGE IN [place]IN PERIODICALLY THOUGH KEEPS TO SELF DENIES ALL
--- NOTE | 2019-10-31 13:43 | NUR ---
Social Work Individual Therapy: criminal justice social worker met with patient to provide brief counseling. Pt appeared to be tangential and hyperverbal. This typewriters functional tester attempted to discuss patient's discharge plan. Patient appeared to be paranoid and delusion she stated that she has her own condo and that "people are going to pay for her and that the economy has been suffering". Pt stated that she has been eating "canned food and that she has been poisoned multiple times". This typewriters functional tester actively listened to patient. Addendum: 10/31/19 at 1434 by KENAN RUFFIN Disregard note wrong patient.
--- NOTE | 2019-10-31 14:34 | NUR ---
GROUP NOTE: Pt was asleep and not easily roused by verbal cues.
[2019-10-31 16:01] VITALS: BP 114/64
[2019-10-31] MEDS: LORAZEPAM 0.5 MG TABLET PO PRN (20:14)
--- NOTE | 2019-10-31 20:14 | NUR ---
GPS RN NOTE: ANXIETY PT. APPEARS TO BE ANXIOUS. ADMINISTERED ATIVAN 0.5 MG PO PRN ORDERED. WILL CONTINUE TO MONITOR FOR SAFETY AND BEHAVIOR
[2019-10-31 20:15] VITALS: BP 100/59
[2019-10-31] MEDS: OLANZAPINE 10 MG TABLET PO SCH (21:54)
[2019-11-01 08:00] VITALS: BP 116/81
[2019-11-01] MEDS: GABAPENTIN 300 MG CAPSULE PO SCH ×3 (08:25→16:33)
[2019-11-01] MEDS: ZIPRASIDONE 20 MG CAPSULE PO SCH (08:26)
[2019-11-01] MEDS: LISINOPRIL (10MG) 10 MG TABLET PO SCH (08:26)
[2019-11-01] MEDS: VENLAFAXINE XR 75 MG CAP.SR.24H PO SCH (08:26)
[2019-11-01] MEDS ORDERED: ZIPRASIDONE 20 MG CAPSULE PO ONE (09:00)
[2019-11-01] MEDS ORDERED: ZIPRASIDONE 20 MG CAPSULE PO SCH (09:00)
--- NOTE | 2019-11-01 14:15 | NUR ---
GROUP NOTE: Pt was asleep and not easily aroused by verbal cues.
[2019-11-01 16:00] VITALS: BP 113/71
[2019-11-01 20:11] VITALS: BP 105/51
[2019-11-01] MEDS: OLANZAPINE 10 MG TABLET PO SCH (21:20)
[2019-11-02 08:00] VITALS: BP 123/78
[2019-11-02] MEDS: ZIPRASIDONE 20 MG CAPSULE PO SCH (08:20)
[2019-11-02] MEDS: GABAPENTIN 300 MG CAPSULE PO SCH ×3 (08:20→16:42)
[2019-11-02] MEDS: LISINOPRIL (10MG) 10 MG TABLET PO SCH (08:20)
[2019-11-02] MEDS: VENLAFAXINE XR 75 MG CAP.SR.24H PO SCH (08:20)
--- NOTE | 2019-11-02 14:27 | NUR ---
INDIVIDUAL INTERVENTION: SW met with pt at bedside to inviter her to group therapy. Pt refused to join and stated that she is tired.
[2019-11-02 16:00] VITALS: BP 104/52
[2019-11-02 20:58] VITALS: BP_SYST 103; BP_SYST 93; BP_DIAS 58; BP_DIAS 59
[2019-11-02] MEDS: OLANZAPINE 10 MG TABLET PO SCH (21:13)
[2019-11-03 08:00] VITALS: BP 114/72
[2019-11-03] MEDS: GABAPENTIN 300 MG CAPSULE PO SCH ×3 (08:26→16:37)
[2019-11-03] MEDS: LISINOPRIL (10MG) 10 MG TABLET PO SCH (08:26)
[2019-11-03] MEDS: VENLAFAXINE XR 75 MG CAP.SR.24H PO SCH (08:26)
[2019-11-03] MEDS: ZIPRASIDONE 20 MG CAPSULE PO SCH (08:26)
--- NOTE | 2019-11-03 15:27 | NUR ---
GROUP NOTE: Social work met with patient to invited group. Pt refused to join and was sleeping.
[2019-11-03 16:00] VITALS: BP 110/70
[2019-11-03 19:52] VITALS: BP 112/68
[2019-11-03 19:58] VITALS: BP 112/68
[2019-11-03] MEDS: LORAZEPAM 0.5 MG TABLET PO PRN (20:22)
--- NOTE | 2019-11-03 20:24 | NUR ---
GPS RN NOTE: ANXIETY PATIENT NOTED TO BE ANXIOUS & RESTLESS, TALKING TO HERSELF. PRN ATIVAN 0.5 MG 1 TAB PO GIVEN ORDERED. WILL MONITOR CLOSELY FOR ANY CHANGES.
[2019-11-03] MEDS: OLANZAPINE 10 MG TABLET PO SCH (21:42)
[2019-11-03] MEDS: TEMAZEPAM 7.5 MG CAPSULE PO PRN (23:45)
--- NOTE | 2019-11-03 23:46 | NUR ---
GPS RN NOTE: INSOMNIA PATIENT NOTED TO BE UNABLE TO SLEEP, WALKING IN THE HALLWAY, TALKING TO HERSELF. PRN RESTORIL 7.5 MG 1 CAP PO GIVEN. WILL REASSESS FOR EFFECTIVENESS.
[2019-11-04 08:00] VITALS: BP 145/78
[2019-11-04] MEDS: GABAPENTIN 300 MG CAPSULE PO SCH ×3 (08:28→16:36)
[2019-11-04] MEDS: LISINOPRIL (10MG) 10 MG TABLET PO SCH (08:28)
[2019-11-04] MEDS: ZIPRASIDONE 20 MG CAPSULE PO SCH (08:28)
[2019-11-04] MEDS: VENLAFAXINE XR 75 MG CAP.SR.24H PO SCH (08:28)
[2019-11-04 16:00] VITALS: BP 107/64
[2019-11-04 20:39] VITALS: BP 100/53
[2019-11-04] MEDS: OLANZAPINE 10 MG TABLET PO SCH (22:04)
[2019-11-04 22:09] VITALS: BP 115/70
[2019-11-05 08:00] VITALS: BP 109/72
[2019-11-05] MEDS: VENLAFAXINE XR 75 MG CAP.SR.24H PO SCH (08:22)
[2019-11-05] MEDS: GABAPENTIN 300 MG CAPSULE PO SCH ×3 (08:23→16:38)
[2019-11-05] MEDS: ZIPRASIDONE 20 MG CAPSULE PO SCH (08:23)
[2019-11-05] MEDS: LISINOPRIL (10MG) 10 MG TABLET PO SCH (08:23)
[2019-11-05 09:13] LABS: BASOPHILS % (AUTO) 0.4 % (0.0-2.0); EOSINOPHILS % (AUTO) 1.5 % (0.0-6.0); HEMATOCRIT 44 % (33-45); HEMOGLOBIN 14.3 g/dL (11.5-14.8); LYMPHOCYTES # (AUTO) 1.3 /CMM (0.8-4.8); LYMPHOCYTES % (AUTO) 20.4 % (20.0-44.0); MEAN CORPUSCULAR HGB CONC 33 g/dl (31.0-36.0); MEAN CORPUSCULAR VOLUME 93 fL (82-100); MONOCYTES # (AUTO) 0.4 /CMM (0.1-1.30); MONOCYTES % (AUTO) 6.2 % (2.0-12.0); NEUTROPHILS # (AUTO) 4.4 /CMM (1.8-8.9); NEUTROPHILS % (AUTO) 71.5 % (43.0-81.0); PLATELET COUNT (AUTO) 273 /CMM (150-450); WHITE BLOOD COUNT (AUTO) 6.2 K/uL (4.3-11.0)
[2019-11-05 09:24] LABS: CALCIUM, SERUM 9.1 mg/dL (8.5-10.1); CREATININE 0.8 mg/dL (0.6-1.3); POTASSIUM 3.9 mmol/L (3.5-5.1)
[2019-11-05 16:00] VITALS: BP 124/71
[2019-11-05 20:20] VITALS: BP 118/70
[2019-11-05] MEDS: OLANZAPINE 10 MG TABLET PO SCH (22:03)
[2019-11-06 08:00] VITALS: BP_SYST 121; BP_SYST 123; BP_DIAS 62; BP_DIAS 75
[2019-11-06] MEDS: VENLAFAXINE XR 75 MG CAP.SR.24H PO SCH (08:14)
[2019-11-06] MEDS: GABAPENTIN 300 MG CAPSULE PO SCH ×3 (08:14→17:12)
[2019-11-06] MEDS: LISINOPRIL (10MG) 10 MG TABLET PO SCH (08:14)
[2019-11-06] MEDS: ZIPRASIDONE 20 MG CAPSULE PO SCH (08:14)
--- NOTE | 2019-11-06 09:00 | NUR ---
RN NOTE- PT IN ROOM AND HARDIN. ALERT ORIENTED TO PERSON PLACE PURPOSE STATES AH VOICES THREATENING HER THOUGH DECREASED IN FREQUENCY PO INTAKE GOOD MED COMPLIANT NEEDS MET
[2019-11-06 16:00] VITALS: BP 99/59
[2019-11-06 20:23] VITALS: BP 99/50
[2019-11-06 21:00] VITALS: BP 106/63
[2019-11-06] MEDS: OLANZAPINE 10 MG TABLET PO SCH (21:59)
[2019-11-07 08:00] VITALS: BP 133/75
[2019-11-07] MEDS: ZIPRASIDONE 20 MG CAPSULE PO SCH (08:23)
[2019-11-07] MEDS: GABAPENTIN 300 MG CAPSULE PO SCH ×3 (08:23→16:31)
[2019-11-07] MEDS: VENLAFAXINE XR 75 MG CAP.SR.24H PO SCH (08:23)
[2019-11-07] MEDS: LISINOPRIL (10MG) 10 MG TABLET PO SCH (08:24)
--- NOTE | 2019-11-07 09:00 | NUR ---
RN NOTE- PT QUIET THIS MORNING SLEEPING. AWAKENED FOR AM MEAL AND RX. MED COMPLIANT DENIES VOICES AH AT THIS TIME NEEDS MET DIRECTABLE SMILING A LITTLE THIS MORNING BETTER EYE CONTACT
--- NOTE | 2019-11-07 11:50 | NUR ---
Facility Contact: KENAN called [facility] and spoke to Malina in the admissions department regarding the pt being transferred back the next day. She stated that she would like updated notes of the pt and a negative COVID test. KENAN stated that she will send the results of the COVID test the following day and the service learning coordinator stated that she will make room for the pt.
--- NOTE | 2019-11-07 11:57 | NUR ---
RN NOTE- COVID TEST FOR PLACEMENT. ORDERED.
--- NOTE | 2019-11-07 11:58 | NUR ---
Facility Contact: KENAN faxed updated notes to [facility] with attn to the fax number: [phone].
--- NOTE | 2019-11-07 14:58 | NUR ---
RN NOTE- COVID TEST COMPLETED BY THIS RN AND DELIVERED TO LAB
--- NOTE | 2019-11-07 15:24 | NUR ---
RN NOTE- LAB CALLED UNIT. PT IS COVID NEG
--- NOTE | 2019-11-07 15:33 | NUR ---
GROUP NOTE: Group Topic: Depression SW invited patient to attend group. patient refused to join group at this time without reason and despite encouragement.
[2019-11-07 16:00] VITALS: BP 105/59
[2019-11-07 20:00] VITALS: BP 105/68
[2019-11-07] MEDS: OLANZAPINE 10 MG TABLET PO SCH (21:08)
[2019-11-08 08:00] VITALS: BP 117/73
[2019-11-08 08:08] VITALS: BP 117/73
[2019-11-08] MEDS: GABAPENTIN 300 MG CAPSULE PO SCH ×2 (08:08→12:08)
[2019-11-08] MEDS: VENLAFAXINE XR 75 MG CAP.SR.24H PO SCH (08:08)
[2019-11-08] MEDS: LISINOPRIL (10MG) 10 MG TABLET PO SCH (08:08)
[2019-11-08] MEDS: ZIPRASIDONE 20 MG CAPSULE PO SCH (08:09)
--- NOTE | 2019-11-08 08:57 | NUR ---
Dr. Morales gave an order to D/C to [facility] and to continue same meds including prn and to follow up with psych and medical doctors.
--- NOTE | 2019-11-08 09:00 | NUR ---
RN NOTE- PT BLUNTED AFFECT CALM QUIET IN HALLS ON UNIT PO INTAKE GOOD MED COMPLIANT SMILING ANTICIPATING DC DENIES SI HI AH VH AT PRESENT
--- NOTE | 2019-11-08 10:02 | NUR ---
Family Contact: KENAN called pts brother, Ryan ([phone]), and left a voicemail that informed him that the pt is going to be discharged [facility].
--- NOTE | 2019-11-08 10:26 | NUR ---
Discharge Note: Pt was discharged to [facility] located at [address] [place] [address]; . Pt was transported via [facility] at 1300. Pts brother, Ryan ([phone]), was made aware. Upon discharge, the pt appeared to be in a euthymic mood and presented with a distressed affect. Pt presented as alert and oriented x4 (time, place, self and situation). Pt denied both suicidal and homicidal ideation as well as auditory and visual hallucinations. Pt will continue to be under the care of psychiatrist, Dr. Morales, located at [address], [place] [address]; and electric locomotive firer/fireman, Dr. Wild, located at [address] [place] [address]; . Pt signed the Choice of Vendor form to return to the facility.
--- NOTE | 2019-11-08 13:25 | NUR ---
COIL BINDER NOTE- PT DC AT THIS TIME TO [facility] IN [place]. PT LEAVING VIA AMBULANCE. SHE IS ALERT ORIENTED TO PERSON PLACE TIME AND PURPOSE. CURRENTLY DENIES SI HI AH VH THOUGH HEARS PERIODIC VOICES. VS STABLE, SKIN INTACT, DC INSTRUCTIONS AND RX REVIEWED W PT AND AMBULANCE STAFF. REPORT CALLED TO REGIS AT FACILITY. PT VALUABLES RETURNED TO HER AND SIGNED FOR. ID [id number] REMOVED. ESCORTED OFF FACILITY
== END 2019-11-08 14:01 | DRG 885 ==
LOC: GPS 04:55
PROVIDERS: ADMIT Psychiatry & Neurology Psychiatry; ATTEND Hospitalist
DX: F25.0 Schizoaffective disorder, bipolar type (principal); F23 Brief psychotic disorder; E22.1 Hyperprolactinemia; F41.9 Anxiety disorder, unspecified; F32.9 Major depressive disorder, single episode, unspecified; F22 Delusional disorders; I10 Essential (primary) hypertension
CPT/HCPCS: 36415; 80048-TC; 80061-TC; 82565-TC; 82962-TC; 85025-TC; 87081-TC